=== PATIENT | male | born 1965 ===

== ENCOUNTER 2024-11-30 07:06 | Observation (INO) | payer BC ==
[2024-11-30] MEDS: Ativan 2 MG/1 ML VIAL IV ONE (07:21)
[2024-11-30 07:24] LABS: BASOPHIL % 0.6 % (0.2-1.2); Basophil (Absolute #) 0.07 x10^3/uL (0.01-0.08); Eosinophil (Absolute #) 0.20 x10^3/uL (0.04-0.54); Hematocrit 44.7 % (40.1-51.0); Hemoglobin 15.2 g/dL (13.7-17.5); IMMATURE GRAN # 0.05 x10^3u/L (0.001-0.031); IMMATURE GRAN % 0.4 % (0.001-0.429); Lymphocyte (Absolute #) 3.73 x10^3/uL (1.32-3.57); Mean Corpuscular Hemoglobin 31.9 pg (25.7-32.2); Mean Corpuscular Hgb Concent. 34.0 g/dL (32.3-36.5); Monocyte (Absolute #) 1.20 x10^3/uL (0.30-0.82); NUCLEATED RBC # 0.00 x10^3u/L (0.00-0.012); NUCLEATED RBC % 0.0 % (0.00-0.2); Platelet Count 275 x10^3/uL (163-337); Red Blood Count 4.77 x10^6/uL (4.63-6.08); White Blood Count 12.3 x10^3/uL (4.23-9.07)
--- NOTE | 2024-11-30 07:32 | ERPHSYRPT ---
- History of Present Illness Time Seen by Provider: 11/30/24 07:13 Source: patient, family Exam Limitations: clinical condition Patient Subjective Stated Complaint: seizure Triage Nursing Assessment: Pt brought to the ER by his son, hypertensive, pt was shaking but talking when he arrived and ativan was given and he is now sleeping and questions weren't able to be asked, unsure of medical history, pulses normal, skin n/w/d, no difficulty breathing, doesn't appear to be in any pain Physician History: Patient is here with seizure-like activity. Patient apparently was shaking all over after drinking a 5-hour energy. This is per the patient's adult son who is at bedside. Patient states that he has a history of seizures. However, he is not prescribed any medication. They are driving from [place] today. Denies any falls or other trauma. Hx Influenza Vaccination/Date Given: No Travel Risk - International Travel Have you traveled outside of the country in past 3 weeks: No - Emerging Infectious Disease Are you exhibiting symptoms associated with any current EIDs: No - Past Medical History Pertinent Past Medical History: Yes Neurological History: Seizures - Past Surgical History Past Surgical History: No - Social History Smoking Status: Current every day smoker Exposure to second hand smoke: Yes Drug Use: marijuana - Social Determinants of Health Will the patient participate in the screening: Yes Do you worry about a steady place to live?: No Do you have any problems with any of the following?: No known problems In the past 12 months,have you had to go without utilities?: No Transportation Issues: No Has anyone in your support network made you feel unsafe?: No Have you or anyone in your house had to go w/o enough food: No - Nursing Vital Signs Nursing Vital Signs: Initial Vital Signs Blood Pressure 174/87 11/30/24 07:05 Pain Scale Pain Intensity 0 - Physical Exam SpO2: 100 Comments: 11/30/24 07:25 Review of Systems Constitutional: Negative for fever. HENT: Negative for congestion. Respiratory: Negative for shortness of breath. Cardiovascular: Negative for chest pain. Gastrointestinal: Negative for abdominal pain. Genitourinary: Negative for dysuria. Musculoskeletal: Negative for back pain. Skin: Negative for rash. Neurological: Negative for headaches. Psychiatric/Behavioral: Negative for behavioral problems. All other systems reviewed and are negative. Physical Exam Vitals signs and nursing note reviewed. Constitutional: Appearance: Patient is well-developed. HENT: Head: Normocephalic and atraumatic. Eyes: Conjunctiva/sclera: Conjunctivae normal. Neck: Musculoskeletal: Normal range of motion. Trachea: No tracheal deviation. Cardiovascular: Rate and Rhythm: Normal rate. Heart sounds normal. Pulmonary: Effort: Pulmonary effort is normal. No respiratory distress. Abdominal: Palpations: Abdomen is soft. Musculoskeletal: General: No deformity. Skin: General: Skin is warm and dry. Neurological/ Psychiatric: Mental Status: Mental status, behavior, interaction with environment is appropriate for patient's age and condition. Patient is moving all 4 extremities, answering questions correctly. He is still tremulous in his arms and hands. - Course Nursing assessment & vital signs reviewed: Yes EKG Interpreted by Me: Sinus Rhythm Ordered Tests: Active Orders 24 hr Category Date Time Status Clean Catch Urine Specimen STAT Care 11/30/24 07:13 Active EKG-ER Only STAT Care 11/30/24 07:13 Active EKG-ER Only STAT Care 11/30/24 09:51 Active IV Insertion STAT Care 11/30/24 07:13 Active POCT Glucose Check STAT Care 11/30/24 07:13 Active CHEST 1 VIEW (PORTABLE) Stat Exams 11/30/24 07:14 Completed HEAD WITHOUT CONTRAST [CT] Stat Exams 11/30/24 07:14 Completed ACETAMINOPHEN Stat Lab 11/30/24 07:22 Completed CBC W DIFF Stat Lab 11/30/24 07:22 Completed CMP Stat Lab 11/30/24 07:22 Completed ETHYL ALCOHOL Stat Lab 11/30/24 07:22 Completed Lactic Acid Stat Lab 11/30/24 10:00 Completed POCT GLUCOSE Stat Lab 11/30/24 07:12 Completed PROTIME WITH INR Stat Lab 11/30/24 07:22 Completed SALICYLATE Stat Lab 11/30/24 07:22 Completed TROPONIN Q4H Lab 11/30/24 07:22 Completed TROPONIN Q4H Lab 11/30/24 10:02 Completed TROPONIN Q4H Lab 11/30/24 15:15 Ordered TROPONIN Q4H Lab 11/30/24 19:15 Ordered TROPONIN Q4H Lab 11/30/24 23:15 Ordered UA W/RFX UR CULTURE Stat Lab 11/30/24 08:40 Completed Urine Triage Profile Stat Lab 11/30/24 08:40 Completed Medication Summary Discontinued Medications Generic Name Dose Route Start Last Admin Trade Name Spencer PRN Reason Stop Dose Admin Sodium Chloride 1,000 mls @ 999 mls/hr 11/30/24 07:13 11/30/24 08:36 Sodium Chloride 0.9% 1000 Ml IV 11/30/24 08:13 Infused .Q1H1M STA Infusion Sodium Chloride Confirm 11/30/24 07:22 Sodium Chloride 0.9% 1000 Ml Administered 11/30/24 07:23 Dose 1,000 mls @ ud .ROUTE .STK-MED ONE Lorazepam 2 mg 11/30/24 07:20 11/30/24 07:21 Lorazepam 2 Mg/1 Ml 2 Mg Vial IV 11/30/24 07:21 2 mg STAT ONE Administration Lab/Rad Data: Laboratory Result Diagrams 11/30/24 07:22 11/30/24 07:22 Laboratory Results 11/30/24 11/30/24 11/30/24 Range/Units 10:02 10:00 08:40 WBC (4.23-9.07) x10^3/uL RBC (4.63-6.08) x10^6/uL Hgb (13.7-17.5) g/dL Hct (40.1-51.0) % MCV (79.0-92.2) fL MCH (25.7-32.2) pg MCHC (32.3-36.5) g/dL RDW (11.6-14.4) % Plt Count (163-337) x10^3/uL MPV (9.4-12.4) fL Gran % (34.0-67.9) % Immature Gran % (Auto) (0.001-0.429) % Nucleat RBC Rel Count (0.00-0.2) % Eos # (Auto) (0.04-0.54) x10^3/uL Immature Gran # (Auto) (0.001-0.031) x10^3u/L Absolute Lymphs (auto) (1.32-3.57) x10^3/uL Absolute Monos (auto) (0.30-0.82) x10^3/uL Absolute Nucleated RBC (0.00-0.012) x10^3u/L Lymphocytes % (21.8-53.1) % Monocytes % (5.3-12.2) % Eosinophils % (0.8-7.0) % Basophils % (0.2-1.2) % Absolute Granulocytes (1.78-5.38) x10^3/uL Basophils # (0.01-0.08) x10^3/uL PT (9.4-12.5) SECONDS INR (0.8-3.0) Sodium (135-145) mmol/L Potassium (3.5-5.1) mmol/L Chloride (98-107) mmol/L Carbon Dioxide (22-30) mmol/L Anion Gap (5-15) MEQ/L BUN (9-20) mg/dL Creatinine (0.66-1.25) mg/dL Estimated GFR ML/MIN Glucose (74-106) mg/dL POC Glucometer (74 to 106) mg/dL Lactic Acid 1.4 (0.4-2.0) Calcium (8.4-10.2) mg/dL Total Bilirubin (0.2-1.3) mg/dL AST (17-59) U/L ALT (0-50) U/L Alkaline Phosphatase (38-126) U/L Troponin I 0.016 (0.000-0.033) ng/mL Serum Total Protein (6.3-8.2) g/dL Albumin (3.5-5.0) g/dL Urine Color (Yellow) Urine Appearance (Clear) Urine pH (4.6-8.0) Ur Specific [place] (1.005-1.030) Urine Protein (Negative) Urine Glucose (UA) (Negative) mg/dL Urine Ketones (Negative) Urine Blood (Negative) Urine Nitrite (Negative) Urine Bilirubin (Negative) Urine Urobilinogen (0.2) mg/dL Ur Leukocyte Esterase (Negative) U Hyaline Cast (Auto) (0-2) /LPF Urine Microscopic RBC (0-5) /HPF Urine Microscopic WBC (0-5) /HPF Ur Epithelial Cells (None Seen) /HPF Urine Bacteria (None Seen) /HPF Urine Culture Reflexed (NO) Salicylates (2-20) mg/dL Urine Opiates Level NEGATIVE (NEGATIVE) Ur Methadone NEGATIVE (NEGATIVE) Acetaminophen (10-30) ug/ml Urine Barbiturates NEGATIVE (NEGATIVE) Ur Phencyclidine (PCP) NEGATIVE (NEGATIVE) Urine Amphetamine NEGATIVE (NEGATIVE) U Benzodiazepine Level NEGATIVE (NEGATIVE) Urine Cocaine NEGATIVE (NEGATIVE) Urine Marijuana (THC) POSITIVE A (NEGATIVE) Ethyl Alcohol (0-10) mg/dL 11/30/24 11/30/24 11/30/24 Range/Units 08:40 07:22 07:22 WBC (4.23-9.07) x10^3/uL RBC (4.63-6.08) x10^6/uL Hgb (13.7-17.5) g/dL Hct (40.1-51.0) % MCV (79.0-92.2) fL MCH (25.7-32.2) pg MCHC (32.3-36.5) g/dL RDW (11.6-14.4) % Plt Count (163-337) x10^3/uL MPV (9.4-12.4) fL Gran % (34.0-67.9) % Immature Gran % (Auto) (0.001-0.429) % Nucleat RBC Rel Count (0.00-0.2) % Eos # (Auto) (0.04-0.54) x10^3/uL Immature Gran # (Auto) (0.001-0.031) x10^3u/L Absolute Lymphs (auto) (1.32-3.57) x10^3/uL Absolute Monos (auto) (0.30-0.82) x10^3/uL Absolute Nucleated RBC (0.00-0.012) x10^3u/L Lymphocytes % (21.8-53.1) % Monocytes % (5.3-12.2) % Eosinophils % (0.8-7.0) % Basophils % (0.2-1.2) % Absolute Granulocytes (1.78-5.38) x10^3/uL Basophils # (0.01-0.08) x10^3/uL PT 9.7 (9.4-12.5) SECONDS INR 0.88 (0.8-3.0) Sodium (135-145) mmol/L Potassium (3.5-5.1) mmol/L Chloride (98-107) mmol/L Carbon Dioxide (22-30) mmol/L Anion Gap (5-15) MEQ/L BUN (9-20) mg/dL Creatinine (0.66-1.25) mg/dL Estimated GFR ML/MIN Glucose (74-106) mg/dL POC Glucometer (74 to 106) mg/dL Lactic Acid (0.4-2.0) Calcium (8.4-10.2) mg/dL Total Bilirubin (0.2-1.3) mg/dL AST (17-59) U/L ALT (0-50) U/L Alkaline Phosphatase (38-126) U/L Troponin I < 0.012 (0.000-0.033) ng/mL Serum Total Protein (6.3-8.2) g/dL Albumin (3.5-5.0) g/dL Urine Color Yellow (Yellow) Urine Appearance Clear (Clear) Urine pH 6.5 (4.6-8.0) Ur Specific [place] 1.015 (1.005-1.030) Urine Protein Negative (Negative) Urine Glucose (UA) Negative (Negative) mg/dL Urine Ketones Negative (Negative) Urine Blood Negative (Negative) Urine Nitrite Negative (Negative) Urine Bilirubin Negative (Negative) Urine Urobilinogen 0.2 (0.2) mg/dL Ur Leukocyte Esterase Negative (Negative) U Hyaline Cast (Auto) NONE SEEN (0-2) /LPF Urine Microscopic RBC 0-2 (0-5) /HPF Urine Microscopic WBC 0-2 (0-5) /HPF Ur Epithelial Cells None Seen (None Seen) /HPF Urine Bacteria None Seen (None Seen) /HPF Urine Culture Reflexed NO (NO) Salicylates (2-20) mg/dL Urine Opiates Level (NEGATIVE) Ur Methadone (NEGATIVE) Acetaminophen (10-30) ug/ml Urine Barbiturates (NEGATIVE) Ur Phencyclidine (PCP) (NEGATIVE) Urine Amphetamine (NEGATIVE) U Benzodiazepine Level (NEGATIVE) Urine Cocaine (NEGATIVE) Urine Marijuana (THC) (NEGATIVE) Ethyl Alcohol (0-10) mg/dL 11/30/24 11/30/24 11/30/24 Range/Units 07:22 07:22 07:12 WBC 12.3 H (4.23-9.07) x10^3/uL RBC 4.77 (4.63-6.08) x10^6/uL Hgb 15.2 (13.7-17.5) g/dL Hct 44.7 (40.1-51.0) % MCV 93.7 H (79.0-92.2) fL MCH 31.9 (25.7-32.2) pg MCHC 34.0 (32.3-36.5) g/dL RDW 13.1 (11.6-14.4) % Plt Count 275 (163-337) x10^3/uL MPV 10.9 (9.4-12.4) fL Gran % 57.4 (34.0-67.9) % Immature Gran % (Auto) 0.4 (0.001-0.429) % Nucleat RBC Rel Count 0.0 (0.00-0.2) % Eos # (Auto) 0.20 (0.04-0.54) x10^3/uL Immature Gran # (Auto) 0.05 H (0.001-0.031) x10^3u/L Absolute Lymphs (auto) 3.73 H (1.32-3.57) x10^3/uL Absolute Monos (auto) 1.20 H (0.30-0.82) x10^3/uL Absolute Nucleated RBC 0.00 (0.00-0.012) x10^3u/L Lymphocytes % 30.3 (21.8-53.1) % Monocytes % 9.7 (5.3-12.2) % Eosinophils % 1.6 (0.8-7.0) % Basophils % 0.6 (0.2-1.2) % Absolute Granulocytes 7.07 H (1.78-5.38) x10^3/uL Basophils # 0.07 (0.01-0.08) x10^3/uL PT (9.4-12.5) SECONDS INR (0.8-3.0) Sodium 141 (135-145) mmol/L Potassium 4.0 (3.5-5.1) mmol/L Chloride 104 (98-107) mmol/L Carbon Dioxide 26 (22-30) mmol/L Anion Gap 15.1 H (5-15) MEQ/L BUN 19 (9-20) mg/dL Creatinine 0.93 (0.66-1.25) mg/dL Estimated GFR 95.2 ML/MIN Glucose 120 H (74-106) mg/dL POC Glucometer 109 H (74 to 106) mg/dL Lactic Acid (0.4-2.0) Calcium 9.4 (8.4-10.2) mg/dL Total Bilirubin 0.20 (0.2-1.3) mg/dL AST 29 (17-59) U/L ALT 27 (0-50) U/L Alkaline Phosphatase 85 (38-126) U/L Troponin I (0.000-0.033) ng/mL Serum Total Protein 7.7 (6.3-8.2) g/dL Albumin 4.8 (3.5-5.0) g/dL Urine Color (Yellow) Urine Appearance (Clear) Urine pH (4.6-8.0) Ur Specific [place] (1.005-1.030) Urine Protein (Negative) Urine Glucose (UA) (Negative) mg/dL Urine Ketones (Negative) Urine Blood (Negative) Urine Nitrite (Negative) Urine Bilirubin (Negative) Urine Urobilinogen (0.2) mg/dL Ur Leukocyte Esterase (Negative) U Hyaline Cast (Auto) (0-2) /LPF Urine Microscopic RBC (0-5) /HPF Urine Microscopic WBC (0-5) /HPF Ur Epithelial Cells (None Seen) /HPF Urine Bacteria (None Seen) /HPF Urine Culture Reflexed (NO) Salicylates < 1.0 L (2-20) mg/dL Urine Opiates Level (NEGATIVE) Ur Methadone (NEGATIVE) Acetaminophen < 10 L (10-30) ug/ml Urine Barbiturates (NEGATIVE) Ur Phencyclidine (PCP) (NEGATIVE) Urine Amphetamine (NEGATIVE) U Benzodiazepine Level (NEGATIVE) Urine Cocaine (NEGATIVE) Urine Marijuana (THC) (NEGATIVE) Ethyl Alcohol < 10 (0-10) mg/dL - Progress Progress: improved Progress Note: 11/30/24 07:27 Differential diagnosis includes breakthrough seizure, shaking episode, caffeine use, other drug use, Tylenol overdose, aspirin overdose, stroke, head bleed, STEMI, NSTEMI Will obtain basic labs, EKG, troponins, head CT,Chest x-ray, close observation, lunchroom monitor, O2 monitor 11/30/24 10:46 Repeat EKG after 3-1/2 hours demonstrates continued sinus bradycardia, rate of 47, [place] 154, QRS 141, QTc 430, no significant ST changes compared to previous EKG. Patient has had no further episodes of here in the emergency department. He has been observed for almost [address] was read as negative, no obvious source of infection was found. Patient has 2 negative troponins, no EKG changes, no arrhythmia on the lunchroom monitor throughout monitoring. Although patient states he has a history of seizure, he is not on any medication. Perhaps this should be reevaluated by his PCP. I did give typical seizure precautions. This includes no driving, working over an open flame, any activity that could result in injury if he had a seizure. This could also include horseback riding, motorcycle riding. Patient may have also just been shaking after the 5-hour energy drink from a caffeine overload. I did not witness any seizure-like activity and his son may have been describing shaking the whole time. Either way, as above seizure precautions with strict return precautions. I did discuss all this with the patient's son at bedside when he came to pick him up. I described strict return precautions and close follow-up. Counseled pt/family regarding: lab results, diagnosis, need for follow-up, rad results - Departure Departure Disposition: Home Clinical Impression: Episode of shaking Condition: Stable Critical Care Time: No Instructions: Seizures, Adult (DC)
[2024-11-30 07:37] LABS: INR 0.88 (0.8-3.0); PROTIME 9.7 SECONDS (9.4-12.5)
[2024-11-30 07:38] LABS: Calcium 9.4 mg/dL (8.4-10.2); Carbon Dioxide 26 mmol/L (22-30); Creatinine 1 0.93 mg/dL (0.66-1.25); EST GLOMERULAR FILTRATION RATE 95.2 ML/MIN; ETHYL ALCOHOL < 10 mg/dL (0-10); Glucose 120 mg/dL (74-106); Potassium 4.0 mmol/L (3.5-5.1); SGOT/AST 29 U/L (17-59); SGPT/ALT 27 U/L (0-50); Total Protein 7.7 g/dL (6.3-8.2)
--- NOTE | 2024-11-30 08:45 | XRAY ---
Indication: Aspiration. Comparison: None Portable chest inflated and clear. Heart not enlarged. Bony thorax intact with osteopenia and minimal degenerative changes. Impression: Nonacute chest.
--- NOTE | 2024-11-30 08:47 | XRAY ---
Indication: Seizure. Multiple contiguous axial images obtained through the head without contrast. Comparison: None Age-appropriate global atrophy , minimal periventricular degenerative microischemia bilaterally, and remote lacunar infarct right basal ganglia. Left occipital lobe demonstrates small focus remote infarct. No acute intracranial hemorrhage, hydrocephalus, or mass effect. 4th ventricle is midline. Bony calvarium intact. Visualized paranasal sinuses and mastoid air cells are clear. Impression: Nonacute senile brain with remote lacunar infarct right basal ganglia and small remote infarct left occipital lobe.
[2024-11-30 08:49] LABS: Glucose, Urine Negative (Negative); Protein,Urine Dip Negative (Negative); RBC 0-2 /HPF (0-5); WBC 0-2 /HPF (0-5)
[2024-11-30 09:09] LABS: Amphetamine,Urine NEGATIVE (NEGATIVE); Barbiturate,Urine NEGATIVE (NEGATIVE); Benzodiazepine,Urine NEGATIVE (NEGATIVE); Cocaine,Urine NEGATIVE (NEGATIVE); Methadone,Urine NEGATIVE (NEGATIVE); Opiate,Urine NEGATIVE (NEGATIVE); PCP,Urine NEGATIVE (NEGATIVE); THC,Urine POSITIVE (NEGATIVE)
[2024-11-30] MEDS ORDERED: BABY ASPIRIN 81 MG CHEW ONE (11:06)
[2024-11-30] MEDS: BABY ASPIRIN 81 MG CHEW PO ONE (11:08)
--- NOTE | 2024-11-30 11:59 | PCM.CONS ---
History of Present Illness - Neuro Consultation Date of Consultation Date: 11/30/24 ED Arrival Date & Time: 11/30/24 07:06 Providers: Attending Provider: ED Provider: RONAK BARBOSA Consulting Provider: MICHELE JAMES MD cc:: The requesting physician will be sent a copy of the consult. - History of Present Illness HPI: The patient is a 58M with minimal prior PMH, does not take any medications. He was with son all morning, and son noticed he was having trouble walking, stumbling a bit, and saying something felt wrong. At first no obvious deficits were noted, however at some point son noticed the patient was holding his right arm limply at his side, and was using his left arm to move the right arm around. Son brought him to the ER around 7am. He had witnessed shaking which was concerning for seizure activity was given lorazepam. Shaking described by patient's son and bedside nurse as generalized tremors. The shaking stopped and post lorazepam he was drowsy however on re-evaluation as the lorazepam wore off, he was noted to exhibited right sided weakness and slurred speech. Stroke alert called. REVIEW OF SYSTEMS: - Constitutional: negative except as stated in HPI above - ENT: negative except as stated in HPI above - Cardiovascular: negative except as stated in HPI above - Respiratory: negative except as stated in HPI above - Gastrointestinal: negative except as stated in HPI above - Musculoskeletal: negative except as stated in HPI above - Neurological: negative except as stated in HPI above - Psychiatric: negative except as stated in HPI above - Hematologic: negative except as stated in HPI above - Endocrine: negative except as stated in HPI above PAST MEDICAL/SURGICAL HISTORY: as stated in HPI FAMILY HISTORY: no relevant family history disclosed SOCIAL HISTORY: current smoker Review of Systems - Review of Systems Review of Systems (Narrative): Pertinent positive and negative findings as per HPI. All other systems negative. - Past Medical History Past Medical History: Yes Neurological History: Seizures - Past Surgical History Past Surgical History: No - Social History Smoking Status: Current every day smoker Exposure to second hand smoke: Yes Alcohol: Occasionally Drug Use: marijuana - Social Determinants of Health Will the patient participate in the screening: Yes Do you worry about a steady place to live?: No Do you have any problems with any of the following?: No known problems In the past 12 months,have you had to go without utilities?: No Have you or anyone in your house had to go without enough: No Transportation Issues: No Has anyone in your support network made you feel unsafe?: No Physical Exam - Vital Signs Vital Signs: Vital Signs - 24 hr 11/30/24 11/30/24 11/30/24 07:05 07:08 07:44 Pulse Rate 68 52 L Respiratory 23 16 Rate Blood Pressure 174/87 130/81 Blood Pressure 174/87 [Left Arm] O2 Sat by Pulse 100 100 Oximetry 11/30/24 11/30/24 11/30/24 08:00 08:31 09:01 Pulse Rate 59 L 55 L 57 L Respiratory 16 14 15 Rate Blood Pressure 122/77 159/94 148/85 Blood Pressure [Left Arm] O2 Sat by Pulse Oximetry 11/30/24 11/30/24 11/30/24 09:30 10:00 10:31 Pulse Rate 46 L 47 L 46 L Respiratory 16 16 16 Rate Blood Pressure 134/78 159/85 138/76 Blood Pressure [Left Arm] O2 Sat by Pulse Oximetry 11/30/24 11/30/24 11/30/24 10:49 11:18 11:39 Pulse Rate 43 L Respiratory 14 Rate Blood Pressure 167/95 147/74 Blood Pressure [Left Arm] O2 Sat by Pulse 100 100 Oximetry - Physical Exam Tele-Neuro Physical Exam (Narrative): Constitutional: well-developed, no acute distress Cardiovascular: appears well-perfused, no significant edema Skin: no evident rashes or lesions Respiratory: breathing comfortably on room air Psychiatric: drowsy but interactive, conversational Eyes: normal ocular alignment, full range of motion Musculoskeletal: RUE plegic, RLE able to briefly lift antigravity but unable to sustain, no drift in LUE & LLE Neurologic: no aphasia, slight R FD, mild-moderate dysarthria, reports right- sided sensory loss NIHSS Mental status (0-3): 1 Month/age (0-2): 0 Commands (0-2): 0 Best Gaze (0-2): 0 Visual Antoine (0-3):0 Facial weakness (0-3): 1 LUE (0-4): 0 RUE (0-4): 4 LLE (0-4): 0 RLE (0-4): 2 Ataxia (0-2): 0 Sensation (0-2): 2 Aphasia (0-3): 0 Dysarthria (0-2): 1 Extinction (0-2): 0 NIHSS Total: 11 Results - Labs Lab/Micro Results: Lab Results-Last 24 Hours 11/30/24 11/30/24 11/30/24 Range/Units 07:12 07:22 07:22 WBC 12.3 H (4.23-9.07) x10^3/uL RBC 4.77 (4.63-6.08) x10^6/uL Hgb 15.2 (13.7-17.5) g/dL Hct 44.7 (40.1-51.0) % MCV 93.7 H (79.0-92.2) fL MCH 31.9 (25.7-32.2) pg MCHC 34.0 (32.3-36.5) g/dL RDW 13.1 (11.6-14.4) % Plt Count 275 (163-337) x10^3/uL MPV 10.9 (9.4-12.4) fL Gran % 57.4 (34.0-67.9) % Immature Gran % (Auto) 0.4 (0.001-0.429) % Nucleat RBC Rel Count 0.0 (0.00-0.2) % Eos # (Auto) 0.20 (0.04-0.54) x10^3/uL Immature Gran # (Auto) 0.05 H (0.001-0.031) x10^3u/L Absolute Lymphs (auto) 3.73 H (1.32-3.57) x10^3/uL Absolute Monos (auto) 1.20 H (0.30-0.82) x10^3/uL Absolute Nucleated RBC 0.00 (0.00-0.012) x10^3u/L Lymphocytes % 30.3 (21.8-53.1) % Monocytes % 9.7 (5.3-12.2) % Eosinophils % 1.6 (0.8-7.0) % Basophils % 0.6 (0.2-1.2) % Absolute Granulocytes 7.07 H (1.78-5.38) x10^3/uL Basophils # 0.07 (0.01-0.08) x10^3/uL PT (9.4-12.5) SECONDS INR (0.8-3.0) Sodium 141 (135-145) mmol/L Potassium 4.0 (3.5-5.1) mmol/L Chloride 104 (98-107) mmol/L Carbon Dioxide 26 (22-30) mmol/L Anion Gap 15.1 H (5-15) MEQ/L BUN 19 (9-20) mg/dL Creatinine 0.93 (0.66-1.25) mg/dL Estimated GFR 95.2 ML/MIN Glucose 120 H (74-106) mg/dL POC Glucometer 109 H (74 to 106) mg/dL Lactic Acid (0.4-2.0) Calcium 9.4 (8.4-10.2) mg/dL Total Bilirubin 0.20 (0.2-1.3) mg/dL AST 29 (17-59) U/L ALT 27 (0-50) U/L Alkaline Phosphatase 85 (38-126) U/L Troponin I (0.000-0.033) ng/mL Serum Total Protein 7.7 (6.3-8.2) g/dL Albumin 4.8 (3.5-5.0) g/dL Urine Color (Yellow) Urine Appearance (Clear) Urine pH (4.6-8.0) Ur Specific Mellott (1.005-1.030) Urine Protein (Negative) Urine Glucose (UA) (Negative) mg/dL Urine Ketones (Negative) Urine Blood (Negative) Urine Nitrite (Negative) Urine Bilirubin (Negative) Urine Urobilinogen (0.2) mg/dL Ur Leukocyte Esterase (Negative) U Hyaline Cast (Auto) (0-2) /LPF Urine Microscopic RBC (0-5) /HPF Urine Microscopic WBC (0-5) /HPF Ur Epithelial Cells (None Seen) /HPF Urine Bacteria (None Seen) /HPF Urine Culture Reflexed (NO) Salicylates < 1.0 L (2-20) mg/dL Urine Opiates Level (NEGATIVE) Ur Methadone (NEGATIVE) Acetaminophen < 10 L (10-30) ug/ml Urine Barbiturates (NEGATIVE) Ur Phencyclidine (PCP) (NEGATIVE) Urine Amphetamine (NEGATIVE) U Benzodiazepine Level (NEGATIVE) Urine Cocaine (NEGATIVE) Urine Marijuana (THC) (NEGATIVE) Ethyl Alcohol < 10 (0-10) mg/dL 11/30/24 11/30/24 11/30/24 Range/Units 07:22 07:22 08:40 WBC (4.23-9.07) x10^3/uL RBC (4.63-6.08) x10^6/uL Hgb (13.7-17.5) g/dL Hct (40.1-51.0) % MCV (79.0-92.2) fL MCH (25.7-32.2) pg MCHC (32.3-36.5) g/dL RDW (11.6-14.4) % Plt Count (163-337) x10^3/uL MPV (9.4-12.4) fL Gran % (34.0-67.9) % Immature Gran % (Auto) (0.001-0.429) % Nucleat RBC Rel Count (0.00-0.2) % Eos # (Auto) (0.04-0.54) x10^3/uL Immature Gran # (Auto) (0.001-0.031) x10^3u/L Absolute Lymphs (auto) (1.32-3.57) x10^3/uL Absolute Monos (auto) (0.30-0.82) x10^3/uL Absolute Nucleated RBC (0.00-0.012) x10^3u/L Lymphocytes % (21.8-53.1) % Monocytes % (5.3-12.2) % Eosinophils % (0.8-7.0) % Basophils % (0.2-1.2) % Absolute Granulocytes (1.78-5.38) x10^3/uL Basophils # (0.01-0.08) x10^3/uL PT 9.7 (9.4-12.5) SECONDS INR 0.88 (0.8-3.0) Sodium (135-145) mmol/L Potassium (3.5-5.1) mmol/L Chloride (98-107) mmol/L Carbon Dioxide (22-30) mmol/L Anion Gap (5-15) MEQ/L BUN (9-20) mg/dL Creatinine (0.66-1.25) mg/dL Estimated GFR ML/MIN Glucose (74-106) mg/dL POC Glucometer (74 to 106) mg/dL Lactic Acid (0.4-2.0) Calcium (8.4-10.2) mg/dL Total Bilirubin (0.2-1.3) mg/dL AST (17-59) U/L ALT (0-50) U/L Alkaline Phosphatase (38-126) U/L Troponin I < 0.012 (0.000-0.033) ng/mL Serum Total Protein (6.3-8.2) g/dL Albumin (3.5-5.0) g/dL Urine Color Yellow (Yellow) Urine Appearance Clear (Clear) Urine pH 6.5 (4.6-8.0) Ur Specific Mellott 1.015 (1.005-1.030) Urine Protein Negative (Negative) Urine Glucose (UA) Negative (Negative) mg/dL Urine Ketones Negative (Negative) Urine Blood Negative (Negative) Urine Nitrite Negative (Negative) Urine Bilirubin Negative (Negative) Urine Urobilinogen 0.2 (0.2) mg/dL Ur Leukocyte Esterase Negative (Negative) U Hyaline Cast (Auto) NONE SEEN (0-2) /LPF Urine Microscopic RBC 0-2 (0-5) /HPF Urine Microscopic WBC 0-2 (0-5) /HPF Ur Epithelial Cells None Seen (None Seen) /HPF Urine Bacteria None Seen (None Seen) /HPF Urine Culture Reflexed NO (NO) Salicylates (2-20) mg/dL Urine Opiates Level (NEGATIVE) Ur Methadone (NEGATIVE) Acetaminophen (10-30) ug/ml Urine Barbiturates (NEGATIVE) Ur Phencyclidine (PCP) (NEGATIVE) Urine Amphetamine (NEGATIVE) U Benzodiazepine Level (NEGATIVE) Urine Cocaine (NEGATIVE) Urine Marijuana (THC) (NEGATIVE) Ethyl Alcohol (0-10) mg/dL 11/30/24 11/30/24 11/30/24 Range/Units 08:40 10:00 10:02 WBC (4.23-9.07) x10^3/uL RBC (4.63-6.08) x10^6/uL Hgb (13.7-17.5) g/dL Hct (40.1-51.0) % MCV (79.0-92.2) fL MCH (25.7-32.2) pg MCHC (32.3-36.5) g/dL RDW (11.6-14.4) % Plt Count (163-337) x10^3/uL MPV (9.4-12.4) fL Gran % (34.0-67.9) % Immature Gran % (Auto) (0.001-0.429) % Nucleat RBC Rel Count (0.00-0.2) % Eos # (Auto) (0.04-0.54) x10^3/uL Immature Gran # (Auto) (0.001-0.031) x10^3u/L Absolute Lymphs (auto) (1.32-3.57) x10^3/uL Absolute Monos (auto) (0.30-0.82) x10^3/uL Absolute Nucleated RBC (0.00-0.012) x10^3u/L Lymphocytes % (21.8-53.1) % Monocytes % (5.3-12.2) % Eosinophils % (0.8-7.0) % Basophils % (0.2-1.2) % Absolute Granulocytes (1.78-5.38) x10^3/uL Basophils # (0.01-0.08) x10^3/uL PT (9.4-12.5) SECONDS INR (0.8-3.0) Sodium (135-145) mmol/L Potassium (3.5-5.1) mmol/L Chloride (98-107) mmol/L Carbon Dioxide (22-30) mmol/L Anion Gap (5-15) MEQ/L BUN (9-20) mg/dL Creatinine (0.66-1.25) mg/dL Estimated GFR ML/MIN Glucose (74-106) mg/dL POC Glucometer (74 to 106) mg/dL Lactic Acid 1.4 (0.4-2.0) Calcium (8.4-10.2) mg/dL Total Bilirubin (0.2-1.3) mg/dL AST (17-59) U/L ALT (0-50) U/L Alkaline Phosphatase (38-126) U/L Troponin I 0.016 (0.000-0.033) ng/mL Serum Total Protein (6.3-8.2) g/dL Albumin (3.5-5.0) g/dL Urine Color (Yellow) Urine Appearance (Clear) Urine pH (4.6-8.0) Ur Specific Mellott (1.005-1.030) Urine Protein (Negative) Urine Glucose (UA) (Negative) mg/dL Urine Ketones (Negative) Urine Blood (Negative) Urine Nitrite (Negative) Urine Bilirubin (Negative) Urine Urobilinogen (0.2) mg/dL Ur Leukocyte Esterase (Negative) U Hyaline Cast (Auto) (0-2) /LPF Urine Microscopic RBC (0-5) /HPF Urine Microscopic WBC (0-5) /HPF Ur Epithelial Cells (None Seen) /HPF Urine Bacteria (None Seen) /HPF Urine Culture Reflexed (NO) Salicylates (2-20) mg/dL Urine Opiates Level NEGATIVE (NEGATIVE) Ur Methadone NEGATIVE (NEGATIVE) Acetaminophen (10-30) ug/ml Urine Barbiturates NEGATIVE (NEGATIVE) Ur Phencyclidine (PCP) NEGATIVE (NEGATIVE) Urine Amphetamine NEGATIVE (NEGATIVE) U Benzodiazepine Level NEGATIVE (NEGATIVE) Urine Cocaine NEGATIVE (NEGATIVE) Urine Marijuana (THC) POSITIVE A (NEGATIVE) Ethyl Alcohol (0-10) mg/dL - Radiology Orders Radiology Orders: Radiology Procedures Category Date Time Status CHEST 1 VIEW (PORTABLE) Stat Exams 11/30/24 07:[address] ANGIOGRAPHY NECK [CT] Stat Exams 11/30/24 11:07 Taken CTA HEAD W AND/OR WO CONTRAST [CT] Stat Exams 11/30/24 11:06 Taken HEAD WITHOUT CONTRAST [CT] Stat Exams 11/30/24 07:14 Completed Impressions & Recommendations - Impression Acute Ischemic Stroke: On my evaluation, demonstrating right sided weakness and facial droop with some dysarthria, consistent with acute ischemic stroke. He is also drowsy which is likely related to the lorazepam he received earlier. Symptoms seemed to have started prior to 7am per son. CTH and CTA personally reviewed, no acute pathology, no LVO. Not a candidate for IV thrombolytics due to symptom onset >4.5h ago. Not a candidate for thrombectomy due to no LVO on CTA. Besides stroke, another possibility could be seizure with Miller's paralysis. Recommendations: - serial neurological examinations - MRI brain without contrast - telemetry - TTE with bubble study - check LDL, goal <70, high intensity statin first line therapy - check A1c, goal <7.0 - permissive hypertension for today (BP <220/120) - start aspirin 81mg daily - PT/OT/DIETETIC TECH Discussed with Dr. Barbosa. - ED Arrival Time ED Arrival Date & Time: ED Arrival Date and Time 11/30/24 07:06 Last known well time: - NIHSS Is patient an IV TPA candidate (if no specify reason): No Is patient a thrombectomy candidate:: No Assessment & Plan - Encounter Encounter: "The entirety of this encounter was performed via Telemedicine using audio and visual "
--- NOTE | 2024-11-30 13:12 | XRAY ---
Indication: Seizure. Stroke. Conventional contrast-enhanced CTA neck performed using 80 cc Isovue 370 contrast. 2D sagittal and coronal reformatted images obtained. Additional 3D reformatted images obtained using separate workstation. Comparison: None Visualized aortic arch is normal in CTA appearance with normal widely patent branching right brachiocephalic, left common carotid, and left subclavian arteries. Left and right common carotid, carotid bulb, internal carotid, and external carotid arteries are normal in CTA appearance. Vertebral arteries are also normal in CTA appearance with the left slightly larger in caliber. Visualized soft tissues demonstrates mild biapical pleural thickening with minimal subpleural cystic changes. No pathologic cervical/supraclavicular lymphadenopathy. Supra and infraglottic airway widely patent. Normal epiglottis. Osseous structures intact with mild C3-T1 degenerative spondylosis. Patient is nearly edentulous. Impression: 1. Chronic findings including biapical pleural thickening with subpleural cystic changes and C3-T1 degenerative spondylosis. 2. Remaining CTA neck with contrast exam is normal.
--- NOTE | 2024-11-30 13:20 | XRAY ---
Indication: Seizure. Stroke. Conventional contrast-enhanced CTA head performed using 80 cc Isovue 370 contrast. 2D sagittal and coronal reformatted images obtained. Additional 3D reformatted images obtained using separate workstation. Comparison: None Distal internal carotid arteries are bilaterally symmetric without critical stenosis, obstruction, or AV malformation. Normal carotid terminus with normal branching A1 and M1 segments bilaterally. More distal anterior cerebral and middle cerebral arteries are normal in CTA appearance. Posterior circulation demonstrates normal CTA appearance to basilar, left/right posterior cerebral, left/right superior cerebellar, and left/right anterior inferior cerebellar arteries. Venous sinuses/drainage unremarkable. Brain parenchyma is negative for abnormal intra or extra-axial enhancement. Impression: Normal CTA head with contrast exam.
--- NOTE | 2024-11-30 14:22 | PCM.HP ---
<WALTER CRABTREE - Last Filed: 11/30/24 14:55> History of Present Illness - Chief Complaint Chief Complaint: CVA Date: 11/30/24 History of Present Illness: is a 58 year old male with a pmhx of seizures (not on any home medications) presented to ED 11/30/24 with his son after developing acute neurologic symptoms. The patient reports that earlier in the morning, around 7:00 AM, after drinking a [employer] beverage, he began noticing that he was having trouble walking and was stumbling. He states that his speech became slurred and he wasnt able to talk correctly. He further reports that his right arm became numb, that he was unable to body builder or move it, and that his right leg was also difficult to move. While in the emergency department he developed shaking episodes described as generalized tremors, for which he was given lorazepam. The shaking resolved, but he was drowsy afterward. As the sedative effect wore off, he continued to demonstrate right-sided weakness and dysarthria, prompting a stroke alert. On my exam patient is drowsy but arousable and able to follow simple commands. Speech is slurred with dysarthria. Cranial nerve exam notable for right lower facial droop. Motor exam demonstrates profound weakness of the right upper and lower extremities, with no voluntary movement and no body builder strength in the right hand. Left upper and lower extremities move spontaneously with normal strength. Sensation diminished in the right upper and lower extremities to light touch. On arrival, vital signs were stable. Laboratory studies showed leukocytosis with WBC 12.3 and an anion gap metabolic acidosis with gap 15.1. Serial troponins were within normal limits, urinalysis was unremarkable, and urine drug screen was positive for THC. Chest radiograph showed no acute findings. CT head demonstrated chronic changes including a remote lacunar infarct in the right basal ganglia and a small remote infarct in the left occipital lobe but no acute hemorrhage. CTA of the head was normal without large vessel occlusion. CTA of the neck revealed chronic findings of biapical pleural thickening with subpleural cystic changes and degenerative spondylosis from C3 to T1, with the remainder of the study normal. Neurology evaluation revealed right-sided weakness, facial droop, and dysarthria consistent with acute ischemic stroke, with his drowsiness attributed to benzodiazepine administration. He was not a candidate for IV thrombolysis given symptom onset greater than 4.5 hours prior, and not a candidate for thrombectomy due to absence of LVO on CTA. Recommendations included serial neurologic examinations, MRI brain without contrast, continuous telemetry, transthoracic echocardiogram with bubble study, initiation of aspirin 81 mg daily and high-intensity statin therapy, evaluation of LDL and hemoglobin A1c, permissive hypertension for the first 24 hours with BP goal <220/120, and early involvement of PT, OT, and speech therapy. - Review of Systems Constitutional: Weakness Eyes: No Symptoms Ears, Nose, & Throat: No Symptoms Respiratory: No Symptoms Cardiac: No Symptoms Abdominal/Gastrointestinal: No Symptoms Genitourinary Symptoms: No Symptoms Musculoskeletal: No Symptoms Skin: No Symptoms Neurological: Focal Weakness, Gait Changes, Seizure, Sensory Changes, Speech Changes, Tremors Psychological: No Symptoms Endocrine: No Symptoms Hematologic/Lymphatic: No Symptoms Immunological/Allergic: No Symptoms Medications & Allergies Home Medications: Home Medication List Aspirin EC 81 mg [Ecotrin 81 mg] 81 mg PO QAM tablet 11/30/24 [Rx] Atorvastatin Calcium [Lipitor 40Mg] 80 mg PO DAILY tablet 11/30/24 [Rx] Nicotine 14 mg [Nicoderm Cq 14 mg] 14 mg TOP Q24H10 patch 11/30/24 [Rx] Ondansetron HCl 4 mg/2 ml [Zofran 4 MG/2 ML VIAL] 4 mg IV Q6H PRN PRN 11/30/24 [Rx] Allergies/Adverse Reactions: Allergies Allergy/AdvReac Type Severity Reaction Status Date / Time No Known Drug Allergies Allergy Verified 11/30/24 14:28 - Past Medical History Past Medical History: Yes Neurological History: Seizures - Past Surgical History Past Surgical History: No - Social History Smoking Status: Current every day smoker Exposure to second hand smoke: Yes Alcohol: Occasionally Drug Use: marijuana - Social Determinants of Health Will the patient participate in the screening: Yes Do you worry about a steady place to live?: No Do you have any problems with any of the following?: No known problems In the past 12 months,have you had to go without utilities?: No Have you or anyone in your house had to go without enough: No Transportation Issues: No Has anyone in your support network made you feel unsafe?: No - Physical Exam Vital Signs: Vital Signs - 24 hr Pulse Resp BP BP Pulse Ox 11/30/24 13:01 43 L 13 127/62 100 11/30/24 12:30 47 L 16 115/55 11/30/24 12:00 49 L 14 137/74 99 11/30/24 11:39 43 L 14 147/74 11/30/24 11:18 167/95 11/30/24 10:49 100 11/30/24 10:31 46 L 16 138/76 11/30/24 10:00 47 L 16 159/85 11/30/24 09:30 46 L 16 134/78 11/30/24 09:01 57 L 15 148/85 11/30/24 08:31 55 L 14 159/94 11/30/24 08:00 59 L 16 122/77 11/30/24 07:44 52 L 16 130/81 11/30/24 07:08 68 23 174/87 11/30/24 07:05 174/87 General Appearance: no apparent distress Neurologic Exam: sensory deficit (RUE/RLE), motor weakness (RUE/RLE), facial droop, slurred speech, dysarthria, other (Drowsy but arousable, able to follow simple commands Dense right-sided hemiplegia. No body builder strength in right hand, no movement in right arm or leg. Left upper and lower extremities 5/5 strength. Sensory: Decreased sensation to light touch on right upper and lower extremities.) Eye Exam: PERRL/EOMI Ears, Nose, Throat Exam: normal ENT inspection Neck Exam: normal inspection Respiratory Exam: normal breath sounds, lungs clear Cardiovascular Exam: regular rate/rhythm, normal heart sounds Rectal Exam: deferred Back Exam: normal inspection Extremity Exam: normal inspection Skin Exam: normal color Results - Labs Lab/Micro Results: Lab Results-Last 24 Hours 11/30/24 11/30/24 11/30/24 Range/Units 07:12 07:22 07:22 WBC 12.3 H (4.23-9.07) x10^3/uL RBC 4.77 (4.63-6.08) x10^6/uL Hgb 15.2 (13.7-17.5) g/dL Hct 44.7 (40.1-51.0) % MCV 93.7 H (79.0-92.2) fL MCH 31.9 (25.7-32.2) pg MCHC 34.0 (32.3-36.5) g/dL RDW 13.1 (11.6-14.4) % Plt Count 275 (163-337) x10^3/uL MPV 10.9 (9.4-12.4) fL Gran % 57.4 (34.0-67.9) % Immature Gran % (Auto) 0.4 (0.001-0.429) % Nucleat RBC Rel Count 0.0 (0.00-0.2) % Eos # (Auto) 0.20 (0.04-0.54) x10^3/uL Immature Gran # (Auto) 0.05 H (0.001-0.031) x10^3u/L Absolute Lymphs (auto) 3.73 H (1.32-3.57) x10^3/uL Absolute Monos (auto) 1.20 H (0.30-0.82) x10^3/uL Absolute Nucleated RBC 0.00 (0.00-0.012) x10^3u/L Lymphocytes % 30.3 (21.8-53.1) % Monocytes % 9.7 (5.3-12.2) % Eosinophils % 1.6 (0.8-7.0) % Basophils % 0.6 (0.2-1.2) % Absolute Granulocytes 7.07 H (1.78-5.38) x10^3/uL Basophils # 0.07 (0.01-0.08) x10^3/uL PT (9.4-12.5) SECONDS INR (0.8-3.0) Sodium 141 (135-145) mmol/L Potassium 4.0 (3.5-5.1) mmol/L Chloride 104 (98-107) mmol/L Carbon Dioxide 26 (22-30) mmol/L Anion Gap 15.1 H (5-15) MEQ/L BUN 19 (9-20) mg/dL Creatinine 0.93 (0.66-1.25) mg/dL Estimated GFR 95.2 ML/MIN Glucose 120 H (74-106) mg/dL POC Glucometer 109 H (74 to 106) mg/dL Lactic Acid (0.4-2.0) Calcium 9.4 (8.4-10.2) mg/dL Total Bilirubin 0.20 (0.2-1.3) mg/dL AST 29 (17-59) U/L ALT 27 (0-50) U/L Alkaline Phosphatase 85 (38-126) U/L Troponin I (0.000-0.033) ng/mL Serum Total Protein 7.7 (6.3-8.2) g/dL Albumin 4.8 (3.5-5.0) g/dL Urine Color (Yellow) Urine Appearance (Clear) Urine pH (4.6-8.0) Ur Specific Johnston (1.005-1.030) Urine Protein (Negative) Urine Glucose (UA) (Negative) mg/dL Urine Ketones (Negative) Urine Blood (Negative) Urine Nitrite (Negative) Urine Bilirubin (Negative) Urine Urobilinogen (0.2) mg/dL Ur Leukocyte Esterase (Negative) U Hyaline Cast (Auto) (0-2) /LPF Urine Microscopic RBC (0-5) /HPF Urine Microscopic WBC (0-5) /HPF Ur Epithelial Cells (None Seen) /HPF Urine Bacteria (None Seen) /HPF Urine Culture Reflexed (NO) Salicylates < 1.0 L (2-20) mg/dL Urine Opiates Level (NEGATIVE) Ur Methadone (NEGATIVE) Acetaminophen < 10 L (10-30) ug/ml Urine Barbiturates (NEGATIVE) Ur Phencyclidine (PCP) (NEGATIVE) Urine Amphetamine (NEGATIVE) U Benzodiazepine Level (NEGATIVE) Urine Cocaine (NEGATIVE) Urine Marijuana (THC) (NEGATIVE) Ethyl Alcohol < 10 (0-10) mg/dL 11/30/24 11/30/24 11/30/24 Range/Units 07:22 07:22 08:40 WBC (4.23-9.07) x10^3/uL RBC (4.63-6.08) x10^6/uL Hgb (13.7-17.5) g/dL Hct (40.1-51.0) % MCV (79.0-92.2) fL MCH (25.7-32.2) pg MCHC (32.3-36.5) g/dL RDW (11.6-14.4) % Plt Count (163-337) x10^3/uL MPV (9.4-12.4) fL Gran % (34.0-67.9) % Immature Gran % (Auto) (0.001-0.429) % Nucleat RBC Rel Count (0.00-0.2) % Eos # (Auto) (0.04-0.54) x10^3/uL Immature Gran # (Auto) (0.001-0.031) x10^3u/L Absolute Lymphs (auto) (1.32-3.57) x10^3/uL Absolute Monos (auto) (0.30-0.82) x10^3/uL Absolute Nucleated RBC (0.00-0.012) x10^3u/L Lymphocytes % (21.8-53.1) % Monocytes % (5.3-12.2) % Eosinophils % (0.8-7.0) % Basophils % (0.2-1.2) % Absolute Granulocytes (1.78-5.38) x10^3/uL Basophils # (0.01-0.08) x10^3/uL PT 9.7 (9.4-12.5) SECONDS INR 0.88 (0.8-3.0) Sodium (135-145) mmol/L Potassium (3.5-5.1) mmol/L Chloride (98-107) mmol/L Carbon Dioxide (22-30) mmol/L Anion Gap (5-15) MEQ/L BUN (9-20) mg/dL Creatinine (0.66-1.25) mg/dL Estimated GFR ML/MIN Glucose (74-106) mg/dL POC Glucometer (74 to 106) mg/dL Lactic Acid (0.4-2.0) Calcium (8.4-10.2) mg/dL Total Bilirubin (0.2-1.3) mg/dL AST (17-59) U/L ALT (0-50) U/L Alkaline Phosphatase (38-126) U/L Troponin I < 0.012 (0.000-0.033) ng/mL Serum Total Protein (6.3-8.2) g/dL Albumin (3.5-5.0) g/dL Urine Color Yellow (Yellow) Urine Appearance Clear (Clear) Urine pH 6.5 (4.6-8.0) Ur Specific Johnston 1.015 (1.005-1.030) Urine Protein Negative (Negative) Urine Glucose (UA) Negative (Negative) mg/dL Urine Ketones Negative (Negative) Urine Blood Negative (Negative) Urine Nitrite Negative (Negative) Urine Bilirubin Negative (Negative) Urine Urobilinogen 0.2 (0.2) mg/dL Ur Leukocyte Esterase Negative (Negative) U Hyaline Cast (Auto) NONE SEEN (0-2) /LPF Urine Microscopic RBC 0-2 (0-5) /HPF Urine Microscopic WBC 0-2 (0-5) /HPF Ur Epithelial Cells None Seen (None Seen) /HPF Urine Bacteria None Seen (None Seen) /HPF Urine Culture Reflexed NO (NO) Salicylates (2-20) mg/dL Urine Opiates Level (NEGATIVE) Ur Methadone (NEGATIVE) Acetaminophen (10-30) ug/ml Urine Barbiturates (NEGATIVE) Ur Phencyclidine (PCP) (NEGATIVE) Urine Amphetamine (NEGATIVE) U Benzodiazepine Level (NEGATIVE) Urine Cocaine (NEGATIVE) Urine Marijuana (THC) (NEGATIVE) Ethyl Alcohol (0-10) mg/dL 11/30/24 11/30/24 11/30/24 Range/Units 08:40 10:00 10:02 WBC (4.23-9.07) x10^3/uL RBC (4.63-6.08) x10^6/uL Hgb (13.7-17.5) g/dL Hct (40.1-51.0) % MCV (79.0-92.2) fL MCH (25.7-32.2) pg MCHC (32.3-36.5) g/dL RDW (11.6-14.4) % Plt Count (163-337) x10^3/uL MPV (9.4-12.4) fL Gran % (34.0-67.9) % Immature Gran % (Auto) (0.001-0.429) % Nucleat RBC Rel Count (0.00-0.2) % Eos # (Auto) (0.04-0.54) x10^3/uL Immature Gran # (Auto) (0.001-0.031) x10^3u/L Absolute Lymphs (auto) (1.32-3.57) x10^3/uL Absolute Monos (auto) (0.30-0.82) x10^3/uL Absolute Nucleated RBC (0.00-0.012) x10^3u/L Lymphocytes % (21.8-53.1) % Monocytes % (5.3-12.2) % Eosinophils % (0.8-7.0) % Basophils % (0.2-1.2) % Absolute Granulocytes (1.78-5.38) x10^3/uL Basophils # (0.01-0.08) x10^3/uL PT (9.4-12.5) SECONDS INR (0.8-3.0) Sodium (135-145) mmol/L Potassium (3.5-5.1) mmol/L Chloride (98-107) mmol/L Carbon Dioxide (22-30) mmol/L Anion Gap (5-15) MEQ/L BUN (9-20) mg/dL Creatinine (0.66-1.25) mg/dL Estimated GFR ML/MIN Glucose (74-106) mg/dL POC Glucometer (74 to 106) mg/dL Lactic Acid 1.4 (0.4-2.0) Calcium (8.4-10.2) mg/dL Total Bilirubin (0.2-1.3) mg/dL AST (17-59) U/L ALT (0-50) U/L Alkaline Phosphatase (38-126) U/L Troponin I 0.016 (0.000-0.033) ng/mL Serum Total Protein (6.3-8.2) g/dL Albumin (3.5-5.0) g/dL Urine Color (Yellow) Urine Appearance (Clear) Urine pH (4.6-8.0) Ur Specific Johnston (1.005-1.030) Urine Protein (Negative) Urine Glucose (UA) (Negative) mg/dL Urine Ketones (Negative) Urine Blood (Negative) Urine Nitrite (Negative) Urine Bilirubin (Negative) Urine Urobilinogen (0.2) mg/dL Ur Leukocyte Esterase (Negative) U Hyaline Cast (Auto) (0-2) /LPF Urine Microscopic RBC (0-5) /HPF Urine Microscopic WBC (0-5) /HPF Ur Epithelial Cells (None Seen) /HPF Urine Bacteria (None Seen) /HPF Urine Culture Reflexed (NO) Salicylates (2-20) mg/dL Urine Opiates Level NEGATIVE (NEGATIVE) Ur Methadone NEGATIVE (NEGATIVE) Acetaminophen (10-30) ug/ml Urine Barbiturates NEGATIVE (NEGATIVE) Ur Phencyclidine (PCP) NEGATIVE (NEGATIVE) Urine Amphetamine NEGATIVE (NEGATIVE) U Benzodiazepine Level NEGATIVE (NEGATIVE) Urine Cocaine NEGATIVE (NEGATIVE) Urine Marijuana (THC) POSITIVE A (NEGATIVE) Ethyl Alcohol (0-10) mg/dL - Radiology Impressions Radiology Exams & Impressions: Radiology Procedures Category Date Time Status CHEST 1 VIEW (PORTABLE) Stat Exams 11/30/24 07:[address] ANGIOGRAPHY NECK [CT] Stat Exams 11/30/24 11:07 Completed CTA HEAD W AND/OR WO CONTRAST [CT] Stat Exams 11/30/24 11:06 Completed HEAD WITHOUT CONTRAST [CT] Stat Exams 11/30/24 07:14 Completed MRI BRAIN W/O CONTRAST [MRI] Stat Exams 11/30/24 13:12 Taken Assessment/Plan (2) Stroke-like symptom Current Visit: Yes Status: Acute Assessment & Plan: -Right-sided weakness, facial droop, dysarthria, onset prior to 7:00 AM. -CT head with chronic infarcts only, no acute hemorrhage; CTA head/neck without LVO. -Troponins negative; no metabolic cause found besides mild AG acidosis. -Neurology consulted with recs for: MRI brain without contrast for confirmation of ischemia and to differentiate from post-ictal changes;permissive hypertension allowed up to 220/120 mmHg for 24 hours;Antiplatelet therapy: initiate aspirin 81 mg daily. -Statin therapy: start atorvastatin 80 mg daily; TTE with bubble study to evaluate for cardioembolic source (bubble study not available will obtain echo) -PT/OT/STORE ADMINISTRATIVE ASSISTANT consults for rehabilitation and swallow assessment. -lipid, A1c -Pole Inspector on risk factor modification including smoking cessation Code(s): R29.90 - UNSPECIFIED SYMPTOMS AND SIGNS INVOLVING THE NERVOUS SYSTEM (3) Leukocytosis Current Visit: Yes Status: Acute Code(s): D72.829 - ELEVATED WHITE BLOOD CELL COUNT, UNSPECIFIED (4) High anion gap metabolic acidosis Current Visit: Yes Status: Acute Code(s): E87.29 - OTHER ACIDOSIS (5) Seizure disorder Current Visit: Yes Status: Acute Assessment & Plan: -History: prior seizures, witnessed shaking described as generalized tremors, treated with lorazepam in ED; postictal drowsiness, evolving focal weakness -Place on seizure precautions. -EEG if further episodes occur or if MRI raises concern for seizure focus. -Avoid unnecessary benzodiazepines unless recurrent seizure activity is witnessed. -Outpatient neurology follow-up for seizure management and consideration of maintenance AED therapy, as patient is not currently on any antiseizure medication. Code(s): G40.909 - EPILEPSY, UNSP, NOT INTRACTABLE, WITHOUT STATUS EPILEPTICUS (6) Remote history of stroke Current Visit: Yes Status: Acute Assessment & Plan: -Seen on CT head as chronic changes, no acute process -Secondary prevention overlaps with current stroke plan (aspirin, statin, risk factor modification). -Pole Inspector on recognition of recurrent stroke symptoms and urgent evaluation. Code(s): Z86.73 - PRSNL HX OF TIA (TIA), AND CEREB INFRC W/O RESID DEFICITS (7) Tobacco abuse Current Visit: Yes Status: Acute Assessment & Plan: -Strong counseling for cessation, provide nicotine replacement therapy or varenicline as appropriate. -Outpatient referral to smoking cessation program -nicotine patch Code(s): Z72.0 - TOBACCO USE (8) Cannabis abuse Current Visit: Yes Status: Acute Assessment & Plan: -Urine drug screen positive for THC, social history consistent with daily use. -Pole Inspector regarding potential neurologic effects, seizure threshold, and impact on recovery. -Recommend reduction/cessation Code(s): F12.10 - CANNABIS ABUSE, UNCOMPLICATED (9) Degenerative disc disease, cervical Current Visit: Yes Status: Acute Assessment & Plan: -CTA neck demonstrated chronic spondylosis. -No acute intervention required. -Consider outpatient spine referral if symptomatic VTE: ASA/SCD PPI: protonix Dispo: 1-2 days Code status: Full Code Plan of care time spent > 40 mins Code(s): M50.30 - OTHER CERVICAL DISC DEGENERATION, UNSP CERVICAL REGION Telemedicine Encounter - Telemedicine Encounter Telemedicine Encounter: "The entirety of this encounter was performed via Telemedicine" This visit was performed using real-time audio and video connection between my location and thepatients locationwith the assistance of a surrogateat the patients location. Written or verbal consent was obtained from the patient/guardian to perform this visit usings[employer] technology. Any patient questions regarding the telemedicine interaction were answered. <LETICIA VICTOR - Last Filed: 11/30/24 22:17> History of Present Illness - Chief Complaint History of Present Illness: is a 58 year old male. - Physical Exam Vital Signs: Vital Signs - 24 hr Temp Pulse Resp BP BP Pulse Ox 11/30/24 19:33 97.8 F 49 L 16 159/56 97 11/30/24 16:58 97 11/30/24 14:58 97.5 F 45 L 15 160/83 96 11/30/24 14:17 97.5 F 45 L 18 160/83 96 11/30/24 13:52 97 11/30/24 13:01 43 L 13 127/62 100 11/30/24 12:30 47 L 16 115/55 100 11/30/24 12:00 49 L 14 137/74 99 11/30/24 11:39 43 L 14 147/74 11/30/24 11:18 167/95 11/30/24 10:49 100 11/30/24 10:31 46 L 16 138/76 11/30/24 10:00 47 L 16 159/85 11/30/24 09:30 46 L 16 134/78 11/30/24 09:01 57 L 15 148/85 11/30/24 08:31 55 L 14 159/94 11/30/24 08:00 59 L 16 122/77 11/30/24 07:44 52 L 16 130/81 11/30/24 07:08 68 23 174/87 11/30/24 07:05 174/87 Results - Labs Lab/Micro Results: Lab Results-Last 24 Hours 11/30/24 11/30/24 11/30/24 Range/Units 07:12 07:22 07:22 WBC 12.3 H (4.23-9.07) x10^3/uL RBC 4.77 (4.63-6.08) x10^6/uL Hgb 15.2 (13.7-17.5) g/dL Hct 44.7 (40.1-51.0) % MCV 93.7 H (79.0-92.2) fL MCH 31.9 (25.7-32.2) pg MCHC 34.0 (32.3-36.5) g/dL RDW 13.1 (11.6-14.4) % Plt Count 275 (163-337) x10^3/uL MPV 10.9 (9.4-12.4) fL Gran % 57.4 (34.0-67.9) % Immature Gran % (Auto) 0.4 (0.001-0.429) % Nucleat RBC Rel Count 0.0 (0.00-0.2) % Eos # (Auto) 0.20 (0.04-0.54) x10^3/uL Immature Gran # (Auto) 0.05 H (0.001-0.031) x10^3u/L Absolute Lymphs (auto) 3.73 H (1.32-3.57) x10^3/uL Absolute Monos (auto) 1.20 H (0.30-0.82) x10^3/uL Absolute Nucleated RBC 0.00 (0.00-0.012) x10^3u/L Lymphocytes % 30.3 (21.8-53.1) % Monocytes % 9.7 (5.3-12.2) % Eosinophils % 1.6 (0.8-7.0) % Basophils % 0.6 (0.2-1.2) % Absolute Granulocytes 7.07 H (1.78-5.38) x10^3/uL Basophils # 0.07 (0.01-0.08) x10^3/uL PT (9.4-12.5) SECONDS INR (0.8-3.0) Sodium 141 (135-145) mmol/L Potassium 4.0 (3.5-5.1) mmol/L Chloride 104 (98-107) mmol/L Carbon Dioxide 26 (22-30) mmol/L Anion Gap 15.1 H (5-15) MEQ/L BUN 19 (9-20) mg/dL Creatinine 0.93 (0.66-1.25) mg/dL Estimated GFR 95.2 ML/MIN Glucose 120 H (74-106) mg/dL POC Glucometer 109 H (74 to 106) mg/dL Hemoglobin A1c (4.5-6.0) % Lactic Acid (0.4-2.0) Calcium 9.4 (8.4-10.2) mg/dL Total Bilirubin 0.20 (0.2-1.3) mg/dL AST 29 (17-59) U/L ALT 27 (0-50) U/L Alkaline Phosphatase 85 (38-126) U/L Troponin I (0.000-0.033) ng/mL Serum Total Protein 7.7 (6.3-8.2) g/dL Albumin 4.8 (3.5-5.0) g/dL Urine Color (Yellow) Urine Appearance (Clear) Urine pH (4.6-8.0) Ur Specific Johnston (1.005-1.030) Urine Protein (Negative) Urine Glucose (UA) (Negative) mg/dL Urine Ketones (Negative) Urine Blood (Negative) Urine Nitrite (Negative) Urine Bilirubin (Negative) Urine Urobilinogen (0.2) mg/dL Ur Leukocyte Esterase (Negative) U Hyaline Cast (Auto) (0-2) /LPF Urine Microscopic RBC (0-5) /HPF Urine Microscopic WBC (0-5) /HPF Ur Epithelial Cells (None Seen) /HPF Urine Bacteria (None Seen) /HPF Urine Culture Reflexed (NO) Salicylates < 1.0 L (2-20) mg/dL Urine Opiates Level (NEGATIVE) Ur Methadone (NEGATIVE) Acetaminophen < 10 L (10-30) ug/ml Urine Barbiturates (NEGATIVE) Ur Phencyclidine (PCP) (NEGATIVE) Urine Amphetamine (NEGATIVE) U Benzodiazepine Level (NEGATIVE) Urine Cocaine (NEGATIVE) Urine Marijuana (THC) (NEGATIVE) Ethyl Alcohol < 10 (0-10) mg/dL 11/30/24 11/30/24 11/30/24 Range/Units 07:22 07:22 08:40 WBC (4.23-9.07) x10^3/uL RBC (4.63-6.08) x10^6/uL Hgb (13.7-17.5) g/dL Hct (40.1-51.0) % MCV (79.0-92.2) fL MCH (25.7-32.2) pg MCHC (32.3-36.5) g/dL RDW (11.6-14.4) % Plt Count (163-337) x10^3/uL MPV (9.4-12.4) fL Gran % (34.0-67.9) % Immature Gran % (Auto) (0.001-0.429) % Nucleat RBC Rel Count (0.00-0.2) % Eos # (Auto) (0.04-0.54) x10^3/uL Immature Gran # (Auto) (0.001-0.031) x10^3u/L Absolute Lymphs (auto) (1.32-3.57) x10^3/uL Absolute Monos (auto) (0.30-0.82) x10^3/uL Absolute Nucleated RBC (0.00-0.012) x10^3u/L Lymphocytes % (21.8-53.1) % Monocytes % (5.3-12.2) % Eosinophils % (0.8-7.0) % Basophils % (0.2-1.2) % Absolute Granulocytes (1.78-5.38) x10^3/uL Basophils # (0.01-0.08) x10^3/uL PT 9.7 (9.4-12.5) SECONDS INR 0.88 (0.8-3.0) Sodium (135-145) mmol/L Potassium (3.5-5.1) mmol/L Chloride (98-107) mmol/L Carbon Dioxide (22-30) mmol/L Anion Gap (5-15) MEQ/L BUN (9-20) mg/dL Creatinine (0.66-1.25) mg/dL Estimated GFR ML/MIN Glucose (74-106) mg/dL POC Glucometer (74 to 106) mg/dL Hemoglobin A1c (4.5-6.0) % Lactic Acid (0.4-2.0) Calcium (8.4-10.2) mg/dL Total Bilirubin (0.2-1.3) mg/dL AST (17-59) U/L ALT (0-50) U/L Alkaline Phosphatase (38-126) U/L Troponin I < 0.012 (0.000-0.033) ng/mL Serum Total Protein (6.3-8.2) g/dL Albumin (3.5-5.0) g/dL Urine Color Yellow (Yellow) Urine Appearance Clear (Clear) Urine pH 6.5 (4.6-8.0) Ur Specific Johnston 1.015 (1.005-1.030) Urine Protein Negative (Negative) Urine Glucose (UA) Negative (Negative) mg/dL Urine Ketones Negative (Negative) Urine Blood Negative (Negative) Urine Nitrite Negative (Negative) Urine Bilirubin Negative (Negative) Urine Urobilinogen 0.2 (0.2) mg/dL Ur Leukocyte Esterase Negative (Negative) U Hyaline Cast (Auto) NONE SEEN (0-2) /LPF Urine Microscopic RBC 0-2 (0-5) /HPF Urine Microscopic WBC 0-2 (0-5) /HPF Ur Epithelial Cells None Seen (None Seen) /HPF Urine Bacteria None Seen (None Seen) /HPF Urine Culture Reflexed NO (NO) Salicylates (2-20) mg/dL Urine Opiates Level (NEGATIVE) Ur Methadone (NEGATIVE) Acetaminophen (10-30) ug/ml Urine Barbiturates (NEGATIVE) Ur Phencyclidine (PCP) (NEGATIVE) Urine Amphetamine (NEGATIVE) U Benzodiazepine Level (NEGATIVE) Urine Cocaine (NEGATIVE) Urine Marijuana (THC) (NEGATIVE) Ethyl Alcohol (0-10) mg/dL 11/30/24 11/30/24 11/30/24 Range/Units 08:40 10:00 10:02 WBC (4.23-9.07) x10^3/uL RBC (4.63-6.08) x10^6/uL Hgb (13.7-17.5) g/dL Hct (40.1-51.0) % MCV (79.0-92.2) fL MCH (25.7-32.2) pg MCHC (32.3-36.5) g/dL RDW (11.6-14.4) % Plt Count (163-337) x10^3/uL MPV (9.4-12.4) fL Gran % (34.0-67.9) % Immature Gran % (Auto) (0.001-0.429) % Nucleat RBC Rel Count (0.00-0.2) % Eos # (Auto) (0.04-0.54) x10^3/uL Immature Gran # (Auto) (0.001-0.031) x10^3u/L Absolute Lymphs (auto) (1.32-3.57) x10^3/uL Absolute Monos (auto) (0.30-0.82) x10^3/uL Absolute Nucleated RBC (0.00-0.012) x10^3u/L Lymphocytes % (21.8-53.1) % Monocytes % (5.3-12.2) % Eosinophils % (0.8-7.0) % Basophils % (0.2-1.2) % Absolute Granulocytes (1.78-5.38) x10^3/uL Basophils # (0.01-0.08) x10^3/uL PT (9.4-12.5) SECONDS INR (0.8-3.0) Sodium (135-145) mmol/L Potassium (3.5-5.1) mmol/L Chloride (98-107) mmol/L Carbon Dioxide (22-30) mmol/L Anion Gap (5-15) MEQ/L BUN (9-20) mg/dL Creatinine (0.66-1.25) mg/dL Estimated GFR ML/MIN Glucose (74-106) mg/dL POC Glucometer (74 to 106) mg/dL Hemoglobin A1c (4.5-6.0) % Lactic Acid 1.4 (0.4-2.0) Calcium (8.4-10.2) mg/dL Total Bilirubin (0.2-1.3) mg/dL AST (17-59) U/L ALT (0-50) U/L Alkaline Phosphatase (38-126) U/L Troponin I 0.016 (0.000-0.033) ng/mL Serum Total Protein (6.3-8.2) g/dL Albumin (3.5-5.0) g/dL Urine Color (Yellow) Urine Appearance (Clear) Urine pH (4.6-8.0) Ur Specific [place] (1.005-1.030) Urine Protein (Negative) Urine Glucose (UA) (Negative) mg/dL Urine Ketones (Negative) Urine Blood (Negative) Urine Nitrite (Negative) Urine Bilirubin (Negative) Urine Urobilinogen (0.2) mg/dL Ur Leukocyte Esterase (Negative) U Hyaline Cast (Auto) (0-2) /LPF Urine Microscopic RBC (0-5) /HPF Urine Microscopic WBC (0-5) /HPF Ur Epithelial Cells (None Seen) /HPF Urine Bacteria (None Seen) /HPF Urine Culture Reflexed (NO) Salicylates (2-20) mg/dL Urine Opiates Level NEGATIVE (NEGATIVE) Ur Methadone NEGATIVE (NEGATIVE) Acetaminophen (10-30) ug/ml Urine Barbiturates NEGATIVE (NEGATIVE) Ur Phencyclidine (PCP) NEGATIVE (NEGATIVE) Urine Amphetamine NEGATIVE (NEGATIVE) U Benzodiazepine Level NEGATIVE (NEGATIVE) Urine Cocaine NEGATIVE (NEGATIVE) Urine Marijuana (THC) POSITIVE A (NEGATIVE) Ethyl Alcohol (0-10) mg/dL 11/30/24 11/30/24 11/30/24 Range/Units 15:15 15:15 19:23 WBC (4.23-9.07) x10^3/uL RBC (4.63-6.08) x10^6/uL Hgb (13.7-17.5) g/dL Hct (40.1-51.0) % MCV (79.0-92.2) fL MCH (25.7-32.2) pg MCHC (32.3-36.5) g/dL RDW (11.6-14.4) % Plt Count (163-337) x10^3/uL MPV (9.4-12.4) fL Gran % (34.0-67.9) % Immature Gran % (Auto) (0.001-0.429) % Nucleat RBC Rel Count (0.00-0.2) % Eos # (Auto) (0.04-0.54) x10^3/uL Immature Gran # (Auto) (0.001-0.031) x10^3u/L Absolute Lymphs (auto) (1.32-3.57) x10^3/uL Absolute Monos (auto) (0.30-0.82) x10^3/uL Absolute Nucleated RBC (0.00-0.012) x10^3u/L Lymphocytes % (21.8-53.1) % Monocytes % (5.3-12.2) % Eosinophils % (0.8-7.0) % Basophils % (0.2-1.2) % Absolute Granulocytes (1.78-5.38) x10^3/uL Basophils # (0.01-0.08) x10^3/uL PT (9.4-12.5) SECONDS INR (0.8-3.0) Sodium (135-145) mmol/L Potassium (3.5-5.1) mmol/L Chloride (98-107) mmol/L Carbon Dioxide (22-30) mmol/L Anion Gap (5-15) MEQ/L BUN (9-20) mg/dL Creatinine (0.66-1.25) mg/dL Estimated GFR ML/MIN Glucose (74-106) mg/dL POC Glucometer 98 (74 to 106) mg/dL Hemoglobin A1c 5.51 (4.5-6.0) % Lactic Acid (0.4-2.0) Calcium (8.4-10.2) mg/dL Total Bilirubin (0.2-1.3) mg/dL AST (17-59) U/L ALT (0-50) U/L Alkaline Phosphatase (38-126) U/L Troponin I < 0.012 (0.000-0.033) ng/mL Serum Total Protein (6.3-8.2) g/dL Albumin (3.5-5.0) g/dL Urine Color (Yellow) Urine Appearance (Clear) Urine pH (4.6-8.0) Ur Specific Johnston (1.005-1.030) Urine Protein (Negative) Urine Glucose (UA) (Negative) mg/dL Urine Ketones (Negative) Urine Blood (Negative) Urine Nitrite (Negative) Urine Bilirubin (Negative) Urine Urobilinogen (0.2) mg/dL Ur Leukocyte Esterase (Negative) U Hyaline Cast (Auto) (0-2) /LPF Urine Microscopic RBC (0-5) /HPF Urine Microscopic WBC (0-5) /HPF Ur Epithelial Cells (None Seen) /HPF Urine Bacteria (None Seen) /HPF Urine Culture Reflexed (NO) Salicylates (2-20) mg/dL Urine Opiates Level (NEGATIVE) Ur Methadone (NEGATIVE) Acetaminophen (10-30) ug/ml Urine Barbiturates (NEGATIVE) Ur Phencyclidine (PCP) (NEGATIVE) Urine Amphetamine (NEGATIVE) U Benzodiazepine Level (NEGATIVE) Urine Cocaine (NEGATIVE) Urine Marijuana (THC) (NEGATIVE) Ethyl Alcohol (0-10) mg/dL 11/30/24 Range/Units 19:30 WBC (4.23-9.07) x10^3/uL RBC (4.63-6.08) x10^6/uL Hgb (13.7-17.5) g/dL Hct (40.1-51.0) % MCV (79.0-92.2) fL MCH (25.7-32.2) pg MCHC (32.3-36.5) g/dL RDW (11.6-14.4) % Plt Count (163-337) x10^3/uL MPV (9.4-12.4) fL Gran % (34.0-67.9) % Immature Gran % (Auto) (0.001-0.429) % Nucleat RBC Rel Count (0.00-0.2) % Eos # (Auto) (0.04-0.54) x10^3/uL Immature Gran # (Auto) (0.001-0.031) x10^3u/L Absolute Lymphs (auto) (1.32-3.57) x10^3/uL Absolute Monos (auto) (0.30-0.82) x10^3/uL Absolute Nucleated RBC (0.00-0.012) x10^3u/L Lymphocytes % (21.8-53.1) % Monocytes % (5.3-12.2) % Eosinophils % (0.8-7.0) % Basophils % (0.2-1.2) % Absolute Granulocytes (1.78-5.38) x10^3/uL Basophils # (0.01-0.08) x10^3/uL PT (9.4-12.5) SECONDS INR (0.8-3.0) Sodium (135-145) mmol/L Potassium (3.5-5.1) mmol/L Chloride (98-107) mmol/L Carbon Dioxide (22-30) mmol/L Anion Gap (5-15) MEQ/L BUN (9-20) mg/dL Creatinine (0.66-1.25) mg/dL Estimated GFR ML/MIN Glucose (74-106) mg/dL POC Glucometer (74 to 106) mg/dL Hemoglobin A1c (4.5-6.0) % Lactic Acid (0.4-2.0) Calcium (8.4-10.2) mg/dL Total Bilirubin (0.2-1.3) mg/dL AST (17-59) U/L ALT (0-50) U/L Alkaline Phosphatase (38-126) U/L Troponin I < 0.012 (0.000-0.033) ng/mL Serum Total Protein (6.3-8.2) g/dL Albumin (3.5-5.0) g/dL Urine Color (Yellow) Urine Appearance (Clear) Urine pH (4.6-8.0) Ur Specific Johnston (1.005-1.030) Urine Protein (Negative) Urine Glucose (UA) (Negative) mg/dL Urine Ketones (Negative) Urine Blood (Negative) Urine Nitrite (Negative) Urine Bilirubin (Negative) Urine Urobilinogen (0.2) mg/dL Ur Leukocyte Esterase (Negative) U Hyaline Cast (Auto) (0-2) /LPF Urine Microscopic RBC (0-5) /HPF Urine Microscopic WBC (0-5) /HPF Ur Epithelial Cells (None Seen) /HPF Urine Bacteria (None Seen) /HPF Urine Culture Reflexed (NO) Salicylates (2-20) mg/dL Urine Opiates Level (NEGATIVE) Ur Methadone (NEGATIVE) Acetaminophen (10-30) ug/ml Urine Barbiturates (NEGATIVE) Ur Phencyclidine (PCP) (NEGATIVE) Urine Amphetamine (NEGATIVE) U Benzodiazepine Level (NEGATIVE) Urine Cocaine (NEGATIVE) Urine Marijuana (THC) (NEGATIVE) Ethyl Alcohol (0-10) mg/dL - Radiology Impressions Radiology Exams & Impressions: Radiology Procedures Category Date Time Status CHEST 1 VIEW (PORTABLE) Stat Exams 11/30/24 07:[address] ANGIOGRAPHY NECK [CT] Stat Exams 11/30/24 11:07 Completed CTA HEAD W AND/OR WO CONTRAST [CT] Stat Exams 11/30/24 11:06 Completed ECHO W/2D AND DOPPLER [US] Routine Exams 12/01/24 15:11 Ordered HEAD WITHOUT CONTRAST [CT] Stat Exams 11/30/24 07:14 Completed MRI BRAIN W/O CONTRAST [MRI] Stat Exams 11/30/24 13:12 Completed Telemedicine Encounter - Telemedicine Encounter Telemedicine Encounter: "The entirety of this encounter was performed via Telemedicine" This visit was performed using real-time audio and video connection between my location and thepatients locationwith the assistance of a surrogateat the patients location. Written or verbal consent was obtained from the patient/guardian to perform [facility]. Any patient questions regarding the telemedicine interaction were answered. TOMAS Encounter - TOMAS Encounter Attestation TOMAS Encounter Attestation: "MAYANK Padgett androbiscussed pertinent aspects of their care with Walter Crabtree and agree with the history, physical exam (any modifications based on my personal exam will be noted below), assessment, and plan as outlined in original note. Please see immediately below for my summary of findings and additional assessment and plan along with any meaningful corrections/explanations to the Subjective/Objective portions of the TOMAS note will be noted." My portion of the encounter took place via telemedicine. -Patient presents with right sided weakness, reports duration of 2 days. 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 Family requested transfer to [place] which was initiated and sign out given to hospitalist.
[2024-11-30] MEDS ORDERED: Zofran 4 MG/2 ML VIAL IV PRN (15:06)
--- NOTE | 2024-11-30 15:06 | XRAY ---
Indication: Stroke. Sagittal, coronal, and axial MRI brain performed without contrast using T1, T2, FLAIR, diffusion, and ADC sequences. Comparison: None Age-appropriate global atrophy , minimal periventricular degenerative micro ischemia bilaterally, and remote lacunar infarct right basal ganglia. Small focus remote infarcts anterior left parietal lobe and left occipital lobe. Diffusion images demonstrates 1.9 x 0.4 cm linear restricted signal posterior arm left internal capsule favoring ischemia. No acute intracranial hemorrhage, hydrocephalus, or mass effect. 4th ventricle is midline. 7/8 cranial nerve complex bilaterally symmetric. Normal flow void signal within the major intracerebral circulation. Paranasal sinuses are clear. Impression: 1. 1.9 x 0.4 cm acute ischemia left internal capsule. No acute hemorrhage/mass effect. 2. Small remote lacunar infarcts left parietal/left occipital lobes and remote lacunar infarct right basal ganglia. 3. Atrophy and degenerative micro ischemia within normal limits.
--- NOTE | 2024-11-30 16:35 | PCM.DS ---
Discharge Summary Date of Admission: 11/30/24 14:12 Date of Discharge: 11/30/24 Admitting Physician: LETICIA VICTOR MD Primary Care Provider: NO FAMILY DOCTOR Allergies Allergies No Known Drug Allergies Allergy (Verified 11/30/24 14:28) Hospital Summary - Hospital Course Hospital Course: Mr. Womack is a 58-year-old male with a history of seizures, not currently on antiepileptic therapy, who presented on 11/30/24 with acute neurologic symptoms. Earlier that morning, after drinking a [employer], he developed gait instability, slurred speech, and right-sided numbness and weakness involving both the arm and leg. In the emergency department he experienced generalized shaking episodes that resolved with lorazepam, followed by drowsiness. As sedation wore off, he continued to exhibit right hemiparesis, facial droop, and dysarthria, prompting a stroke alert. On exam, he was drowsy but arousable, with slurred speech, right lower facial droop, profound weakness of the right upper and lower extremities, and diminished sensation on the right side. Initial studies showed stable vital signs, WBC 12.3 consistent with mild leukocytosis, and an anion gap of 15.1 without a clear metabolic cause. Serial troponins were negative. Urinalysis was unremarkable, and urine drug screen was positive for THC. Chest x-ray revealed no acute findings. CT head showed chronic infarcts without acute hemorrhage, and CTA head/neck demonstrated no large vessel occlusion but did reveal chronic cervical spondylosis. MRI brain confirmed a 1.9 x 0.4 cm acute ischemic infarct in the left internal capsule, with additional chronic lacunar infarcts in the left parietal and occipital lobes and right basal ganglia. Neurology was consulted and determined he was not a candidate for thrombolysis due to symptom onset beyond 4.5 hours, nor for thrombectomy given absence of LVO. Their recommendations included aspirin 81 mg daily, initiation of high-intensity statin therapy with atorvastatin 80 mg daily, permissive hypertension with a goal less than 220/120 mmHg for the first 24 hours, and transthoracic echocardiogram with bubble study to evaluate for embolic source (not yet completed). PT, OT, and speech therapy were consulted for early rehabilitation and swallow assessment, and laboratory evaluation for lipids and hemoglobin A1c was ordered. He was counseled extensively on stroke prevention and risk factor modification, including smoking cessation and reduction of cannabis use. His seizure history was reviewed, as he is not on maintenance antiepileptic therapy. Seizure precautions were initiated, and recommendations were made for outpatient neurology follow-up for long-term seizure management and possible AED initiation. Benzodiazepines are to be avoided unless recurrent seizure activity occurs. His leukocytosis was felt to be reactive, and repeat monitoring was advised. Remote infarcts seen on imaging were addressed through secondary prevention measures already included in his stroke care plan. The patient received counseling and nicotine replacement therapy for tobacco use, with referral to outpatient cessation resources, and was counseled regarding cannabis use, particularly in relation to neurologic recovery and seizure threshold. His cervical degenerative changes were noted as a chronic finding without need for acute intervention, with outpatient referral to spine care if symptoms develop. At the patients request, arrangements were made for transfer to [facility], which has accepted him for ongoing stroke management and rehabilitation, closer to where he resides. I spent 35 minutes [id number] with the patient on the day of discharge performing discharge exam, discussing hospital stay and discharge instructions with patient and caregivers, preparation of discharge records, prescriptions & referral forms and addressing any questions/concerns the patient had as documented above. - Vitals & Intake/Output Vital Signs: Vital Signs Temperature 97.5 F 11/30/24 14:58 Pulse Rate 45 L 11/30/24 14:58 Respiratory Rate 15 11/30/24 14:58 Blood Pressure 160/83 11/30/24 14:58 O2 Sat by Pulse Oximetry 96 11/30/24 14:58 Intake & Output: Intake & Output 11/28/24 11/29/24 11/30/24 12/01/24 11:59 11:59 11:59 11:59 Output Total 500 Balance -500 Weight 25.628 kg 25.628 kg - Lab Result Diagrams: 11/30/24 07:22 11/30/24 07:22 Lab Results-Last 24 Hrs: Lab Results-Last 24 Hours 11/30/24 11/30/24 11/30/24 Range/Units 07:12 07:22 07:22 WBC 12.3 H (4.23-9.07) x10^3/uL RBC 4.77 (4.63-6.08) x10^6/uL Hgb 15.2 (13.7-17.5) g/dL Hct 44.7 (40.1-51.0) % MCV 93.7 H (79.0-92.2) fL MCH 31.9 (25.7-32.2) pg MCHC 34.0 (32.3-36.5) g/dL RDW 13.1 (11.6-14.4) % Plt Count 275 (163-337) x10^3/uL MPV 10.9 (9.4-12.4) fL Gran % 57.4 (34.0-67.9) % Immature Gran % (Auto) 0.4 (0.001-0.429) % Nucleat RBC Rel Count 0.0 (0.00-0.2) % Eos # (Auto) 0.20 (0.04-0.54) x10^3/uL Immature Gran # (Auto) 0.05 H (0.001-0.031) x10^3u/L Absolute Lymphs (auto) 3.73 H (1.32-3.57) x10^3/uL Absolute Monos (auto) 1.20 H (0.30-0.82) x10^3/uL Absolute Nucleated RBC 0.00 (0.00-0.012) x10^3u/L Lymphocytes % 30.3 (21.8-53.1) % Monocytes % 9.7 (5.3-12.2) % Eosinophils % 1.6 (0.8-7.0) % Basophils % 0.6 (0.2-1.2) % Absolute Granulocytes 7.07 H (1.78-5.38) x10^3/uL Basophils # 0.07 (0.01-0.08) x10^3/uL PT (9.4-12.5) SECONDS INR (0.8-3.0) Sodium 141 (135-145) mmol/L Potassium 4.0 (3.5-5.1) mmol/L Chloride 104 (98-107) mmol/L Carbon Dioxide 26 (22-30) mmol/L Anion Gap 15.1 H (5-15) MEQ/L BUN 19 (9-20) mg/dL Creatinine 0.93 (0.66-1.25) mg/dL Estimated GFR 95.2 ML/MIN Glucose 120 H (74-106) mg/dL POC Glucometer 109 H (74 to 106) mg/dL Hemoglobin A1c (4.5-6.0) % Lactic Acid (0.4-2.0) Calcium 9.4 (8.4-10.2) mg/dL Total Bilirubin 0.20 (0.2-1.3) mg/dL AST 29 (17-59) U/L ALT 27 (0-50) U/L Alkaline Phosphatase 85 (38-126) U/L Troponin I (0.000-0.033) ng/mL Serum Total Protein 7.7 (6.3-8.2) g/dL Albumin 4.8 (3.5-5.0) g/dL Urine Color (Yellow) Urine Appearance (Clear) Urine pH (4.6-8.0) Ur Specific [place] (1.005-1.030) Urine Protein (Negative) Urine Glucose (UA) (Negative) mg/dL Urine Ketones (Negative) Urine Blood (Negative) Urine Nitrite (Negative) Urine Bilirubin (Negative) Urine Urobilinogen (0.2) mg/dL Ur Leukocyte Esterase (Negative) U Hyaline Cast (Auto) (0-2) /LPF Urine Microscopic RBC (0-5) /HPF Urine Microscopic WBC (0-5) /HPF Ur Epithelial Cells (None Seen) /HPF Urine Bacteria (None Seen) /HPF Urine Culture Reflexed (NO) Salicylates < 1.0 L (2-20) mg/dL Urine Opiates Level (NEGATIVE) Ur Methadone (NEGATIVE) Acetaminophen < 10 L (10-30) ug/ml Urine Barbiturates (NEGATIVE) Ur Phencyclidine (PCP) (NEGATIVE) Urine Amphetamine (NEGATIVE) U Benzodiazepine Level (NEGATIVE) Urine Cocaine (NEGATIVE) Urine Marijuana (THC) (NEGATIVE) Ethyl Alcohol < 10 (0-10) mg/dL 11/30/24 11/30/24 11/30/24 Range/Units 07:22 07:22 08:40 WBC (4.23-9.07) x10^3/uL RBC (4.63-6.08) x10^6/uL Hgb (13.7-17.5) g/dL Hct (40.1-51.0) % MCV (79.0-92.2) fL MCH (25.7-32.2) pg MCHC (32.3-36.5) g/dL RDW (11.6-14.4) % Plt Count (163-337) x10^3/uL MPV (9.4-12.4) fL Gran % (34.0-67.9) % Immature Gran % (Auto) (0.001-0.429) % Nucleat RBC Rel Count (0.00-0.2) % Eos # (Auto) (0.04-0.54) x10^3/uL Immature Gran # (Auto) (0.001-0.031) x10^3u/L Absolute Lymphs (auto) (1.32-3.57) x10^3/uL Absolute Monos (auto) (0.30-0.82) x10^3/uL Absolute Nucleated RBC (0.00-0.012) x10^3u/L Lymphocytes % (21.8-53.1) % Monocytes % (5.3-12.2) % Eosinophils % (0.8-7.0) % Basophils % (0.2-1.2) % Absolute Granulocytes (1.78-5.38) x10^3/uL Basophils # (0.01-0.08) x10^3/uL PT 9.7 (9.4-12.5) SECONDS INR 0.88 (0.8-3.0) Sodium (135-145) mmol/L Potassium (3.5-5.1) mmol/L Chloride (98-107) mmol/L Carbon Dioxide (22-30) mmol/L Anion Gap (5-15) MEQ/L BUN (9-20) mg/dL Creatinine (0.66-1.25) mg/dL Estimated GFR ML/MIN Glucose (74-106) mg/dL POC Glucometer (74 to 106) mg/dL Hemoglobin A1c (4.5-6.0) % Lactic Acid (0.4-2.0) Calcium (8.4-10.2) mg/dL Total Bilirubin (0.2-1.3) mg/dL AST (17-59) U/L ALT (0-50) U/L Alkaline Phosphatase (38-126) U/L Troponin I < 0.012 (0.000-0.033) ng/mL Serum Total Protein (6.3-8.2) g/dL Albumin (3.5-5.0) g/dL Urine Color Yellow (Yellow) Urine Appearance Clear (Clear) Urine pH 6.5 (4.6-8.0) Ur Specific [place] 1.015 (1.005-1.030) Urine Protein Negative (Negative) Urine Glucose (UA) Negative (Negative) mg/dL Urine Ketones Negative (Negative) Urine Blood Negative (Negative) Urine Nitrite Negative (Negative) Urine Bilirubin Negative (Negative) Urine Urobilinogen 0.2 (0.2) mg/dL Ur Leukocyte Esterase Negative (Negative) U Hyaline Cast (Auto) NONE SEEN (0-2) /LPF Urine Microscopic RBC 0-2 (0-5) /HPF Urine Microscopic WBC 0-2 (0-5) /HPF Ur Epithelial Cells None Seen (None Seen) /HPF Urine Bacteria None Seen (None Seen) /HPF Urine Culture Reflexed NO (NO) Salicylates (2-20) mg/dL Urine Opiates Level (NEGATIVE) Ur Methadone (NEGATIVE) Acetaminophen (10-30) ug/ml Urine Barbiturates (NEGATIVE) Ur Phencyclidine (PCP) (NEGATIVE) Urine Amphetamine (NEGATIVE) U Benzodiazepine Level (NEGATIVE) Urine Cocaine (NEGATIVE) Urine Marijuana (THC) (NEGATIVE) Ethyl Alcohol (0-10) mg/dL 11/30/24 11/30/24 11/30/24 Range/Units 08:40 10:00 10:02 WBC (4.23-9.07) x10^3/uL RBC (4.63-6.08) x10^6/uL Hgb (13.7-17.5) g/dL Hct (40.1-51.0) % MCV (79.0-92.2) fL MCH (25.7-32.2) pg MCHC (32.3-36.5) g/dL RDW (11.6-14.4) % Plt Count (163-337) x10^3/uL MPV (9.4-12.4) fL Gran % (34.0-67.9) % Immature Gran % (Auto) (0.001-0.429) % Nucleat RBC Rel Count (0.00-0.2) % Eos # (Auto) (0.04-0.54) x10^3/uL Immature Gran # (Auto) (0.001-0.031) x10^3u/L Absolute Lymphs (auto) (1.32-3.57) x10^3/uL Absolute Monos (auto) (0.30-0.82) x10^3/uL Absolute Nucleated RBC (0.00-0.012) x10^3u/L Lymphocytes % (21.8-53.1) % Monocytes % (5.3-12.2) % Eosinophils % (0.8-7.0) % Basophils % (0.2-1.2) % Absolute Granulocytes (1.78-5.38) x10^3/uL Basophils # (0.01-0.08) x10^3/uL PT (9.4-12.5) SECONDS INR (0.8-3.0) Sodium (135-145) mmol/L Potassium (3.5-5.1) mmol/L Chloride (98-107) mmol/L Carbon Dioxide (22-30) mmol/L Anion Gap (5-15) MEQ/L BUN (9-20) mg/dL Creatinine (0.66-1.25) mg/dL Estimated GFR ML/MIN Glucose (74-106) mg/dL POC Glucometer (74 to 106) mg/dL Hemoglobin A1c (4.5-6.0) % Lactic Acid 1.4 (0.4-2.0) Calcium (8.4-10.2) mg/dL Total Bilirubin (0.2-1.3) mg/dL AST (17-59) U/L ALT (0-50) U/L Alkaline Phosphatase (38-126) U/L Troponin I 0.016 (0.000-0.033) ng/mL Serum Total Protein (6.3-8.2) g/dL Albumin (3.5-5.0) g/dL Urine Color (Yellow) Urine Appearance (Clear) Urine pH (4.6-8.0) Ur Specific [place] (1.005-1.030) Urine Protein (Negative) Urine Glucose (UA) (Negative) mg/dL Urine Ketones (Negative) Urine Blood (Negative) Urine Nitrite (Negative) Urine Bilirubin (Negative) Urine Urobilinogen (0.2) mg/dL Ur Leukocyte Esterase (Negative) U Hyaline Cast (Auto) (0-2) /LPF Urine Microscopic RBC (0-5) /HPF Urine Microscopic WBC (0-5) /HPF Ur Epithelial Cells (None Seen) /HPF Urine Bacteria (None Seen) /HPF Urine Culture Reflexed (NO) Salicylates (2-20) mg/dL Urine Opiates Level NEGATIVE (NEGATIVE) Ur Methadone NEGATIVE (NEGATIVE) Acetaminophen (10-30) ug/ml Urine Barbiturates NEGATIVE (NEGATIVE) Ur Phencyclidine (PCP) NEGATIVE (NEGATIVE) Urine Amphetamine NEGATIVE (NEGATIVE) U Benzodiazepine Level NEGATIVE (NEGATIVE) Urine Cocaine NEGATIVE (NEGATIVE) Urine Marijuana (THC) POSITIVE A (NEGATIVE) Ethyl Alcohol (0-10) mg/dL 11/30/24 11/30/24 Range/Units 15:15 15:15 WBC (4.23-9.07) x10^3/uL RBC (4.63-6.08) x10^6/uL Hgb (13.7-17.5) g/dL Hct (40.1-51.0) % MCV (79.0-92.2) fL MCH (25.7-32.2) pg MCHC (32.3-36.5) g/dL RDW (11.6-14.4) % Plt Count (163-337) x10^3/uL MPV (9.4-12.4) fL Gran % (34.0-67.9) % Immature Gran % (Auto) (0.001-0.429) % Nucleat RBC Rel Count (0.00-0.2) % Eos # (Auto) (0.04-0.54) x10^3/uL Immature Gran # (Auto) (0.001-0.031) x10^3u/L Absolute Lymphs (auto) (1.32-3.57) x10^3/uL Absolute Monos (auto) (0.30-0.82) x10^3/uL Absolute Nucleated RBC (0.00-0.012) x10^3u/L Lymphocytes % (21.8-53.1) % Monocytes % (5.3-12.2) % Eosinophils % (0.8-7.0) % Basophils % (0.2-1.2) % Absolute Granulocytes (1.78-5.38) x10^3/uL Basophils # (0.01-0.08) x10^3/uL PT (9.4-12.5) SECONDS INR (0.8-3.0) Sodium (135-145) mmol/L Potassium (3.5-5.1) mmol/L Chloride (98-107) mmol/L Carbon Dioxide (22-30) mmol/L Anion Gap (5-15) MEQ/L BUN (9-20) mg/dL Creatinine (0.66-1.25) mg/dL Estimated GFR ML/MIN Glucose (74-106) mg/dL POC Glucometer (74 to 106) mg/dL Hemoglobin A1c 5.51 (4.5-6.0) % Lactic Acid (0.4-2.0) Calcium (8.4-10.2) mg/dL Total Bilirubin (0.2-1.3) mg/dL AST (17-59) U/L ALT (0-50) U/L Alkaline Phosphatase (38-126) U/L Troponin I < 0.012 (0.000-0.033) ng/mL Serum Total Protein (6.3-8.2) g/dL Albumin (3.5-5.0) g/dL Urine Color (Yellow) Urine Appearance (Clear) Urine pH (4.6-8.0) Ur Specific [place] (1.005-1.030) Urine Protein (Negative) Urine Glucose (UA) (Negative) mg/dL Urine Ketones (Negative) Urine Blood (Negative) Urine Nitrite (Negative) Urine Bilirubin (Negative) Urine Urobilinogen (0.2) mg/dL Ur Leukocyte Esterase (Negative) U Hyaline Cast (Auto) (0-2) /LPF Urine Microscopic RBC (0-5) /HPF Urine Microscopic WBC (0-5) /HPF Ur Epithelial Cells (None Seen) /HPF Urine Bacteria (None Seen) /HPF Urine Culture Reflexed (NO) Salicylates (2-20) mg/dL Urine Opiates Level (NEGATIVE) Ur Methadone (NEGATIVE) Acetaminophen (10-30) ug/ml Urine Barbiturates (NEGATIVE) Ur Phencyclidine (PCP) (NEGATIVE) Urine Amphetamine (NEGATIVE) U Benzodiazepine Level (NEGATIVE) Urine Cocaine (NEGATIVE) Urine Marijuana (THC) (NEGATIVE) Ethyl Alcohol (0-10) mg/dL - Radiology Exams Ordered Rad Exams-Entire Visit: Radiology Procedures Category Date Time Status CHEST 1 VIEW (PORTABLE) Stat Exams 11/30/24 07:[address] ANGIOGRAPHY NECK [CT] Stat Exams 11/30/24 11:07 Completed CTA HEAD W AND/OR WO CONTRAST [CT] Stat Exams 11/30/24 11:06 Completed ECHO W/2D AND DOPPLER [US] Routine Exams 12/01/24 15:11 Ordered HEAD WITHOUT CONTRAST [CT] Stat Exams 11/30/24 07:14 Completed MRI BRAIN W/O CONTRAST [MRI] Stat Exams 11/30/24 13:12 Completed - Procedures and Test Procedures and Tests throughout Hospitalization: Therapy Orders & Screens 11/30/24 15:06 PT Eval & Treat (MD Order) ONCE Reason for Eval:: weakness Diagnosis: CVA OT Eval and Treat (MD Order) ONCE Comment: Physician Instructions: Reason For Exam: Diagnosis: CVA 11/30/24 15:07 ST Eval & Treat (MD Order) ROUTINE Comment: x Physician Instructions: speech/swallow eval Reason For Exam: CVA Evaluate: Yes Treat: Yes Reason for Eval: speech/swallow eval Diagnosis: CVA Discharge Exam General Appearance: no apparent distress Neurologic Exam: alert, oriented x 3, motor deficits, sensory deficit, motor weakness, facial droop, slurred speech, dysarthria, abnormal gait Eye Exam: PERRL Ears, Nose, Throat Exam: normal ENT inspection Neck Exam: normal inspection Respiratory Exam: normal breath sounds, lungs clear Cardiovascular Exam: regular rate/rhythm, normal heart sounds Gastrointestinal/Abdomen Exam: soft, normal bowel sounds Male Genitalia Exam: deferred Rectal Exam: deferred Back Exam: normal inspection Extremity Exam: normal inspection Skin Exam: normal color Final Diagnosis/Problem List - Final Discharge Diagnosis/Problem (1) Acute ischemic stroke Current Visit: Yes Status: Acute Assessment & Plan: MRI confirmed 1.9 x 0.4 cm acute ischemia in the left internal capsule; CT/CTA negative for acute bleed or LVO. Neurology consulted; not a candidate for thrombolysis (>4.5 hrs from onset) or thrombectomy (no LVO). Initiated aspirin 81 mg PO daily. Started high-intensity statin: atorvastatin 80 mg PO nightly. Permissive hypertension allowed, maintain BP <220/120 mmHg for first 24 hrs. Ordered transthoracic echocardiogram with bubble study (pending at transfer). Serial neuro checks and continuous telemetry monitoring. PT/OT/DEBT COLLECTION SPECIALIST consulted for rehabilitation and swallow evaluation. Labs ordered: lipid panel, HbA1c. Risk factor modification discussed: smoking cessation, cannabis reduction, diet, and exercise. Education provided regarding recognition of stroke symptoms and need for urgent car Code(s): I63.9 - CEREBRAL INFARCTION, UNSPECIFIED (2) Stroke-like symptom Current Visit: Yes Status: Acute Assessment & Plan: see above Code(s): R29.90 - UNSPECIFIED SYMPTOMS AND SIGNS INVOLVING THE NERVOUS SYSTEM (3) Leukocytosis Current Visit: Yes Status: Acute Assessment & Plan: No infectious source identified; likely reactive. No antibiotics initiated. Plan for repeat CBC monitoring at follow-up. Code(s): D72.829 - ELEVATED WHITE BLOOD CELL COUNT, UNSPECIFIED (4) High anion gap metabolic acidosis Current Visit: Yes Status: Acute Assessment & Plan: Etiology unclear No metabolic cause of presenting symptoms identified. Code(s): E87.29 - OTHER ACIDOSIS (5) Seizure disorder Current Visit: Yes Status: Acute Assessment & Plan: History of seizures, not on home AED therapy. In ED: generalized shaking episode treated with lorazepam, followed by postictal drowsiness. Seizure precautions implemented during admission. Avoid further benzodiazepines unless recurrent seizure activity occurs. Outpatient neurology follow-up arranged for evaluation of long-term AED initiation. EEG recommended if further events occur. Code(s): G40.909 - EPILEPSY, UNSP, NOT INTRACTABLE, WITHOUT STATUS EPILEPTICUS (6) Remote history of stroke Current Visit: Yes Status: Acute Assessment & Plan: see stroke above Code(s): Z86.73 - PRSNL HX OF TIA (TIA), AND CEREB INFRC W/O RESID DEFICITS (7) Tobacco abuse Current Visit: Yes Status: Acute Assessment & Plan: Strong counseling provided regarding cessation. Nicotine patch initiated during admission. Code(s): Z72.0 - TOBACCO USE (8) Cannabis abuse Current Visit: Yes Status: Acute Assessment & Plan: Urine drug screen positive for THC, consistent with daily use. Counseling provided regarding neurologic and seizure threshold effects. Recommended reduction/cessation. Code(s): F12.10 - CANNABIS ABUSE, UNCOMPLICATED (9) Degenerative disc disease, cervical Current Visit: Yes Status: Acute Assessment & Plan: No acute intervention required. Outpatient referral to spine clinic if symptomatic in future. Code(s): M50.30 - OTHER CERVICAL DISC DEGENERATION, UNSP CERVICAL REGION - Discharge Discharge Date: 11/30/24 ([facility]) Disposition: DC TO OTHER HOSP Condition: Stable Prescriptions: New Aspirin EC 81 mg [Ecotrin 81 mg] 81 mg PO QAM tablet Atorvastatin Calcium [Lipitor 40Mg] 80 mg PO DAILY tablet Nicotine 14 mg [Nicoderm Cq 14 mg] 14 mg TOP Q24H10 patch Ondansetron HCl 4 mg/2 ml [Zofran 4 MG/2 ML VIAL] 4 mg IV Q6H PRN PRN PRN Reason: Nausea/Vomiting Follow up with: DOCTOR,NO FAMILY [Primary Care Provider, UNKNOWN] - Follow up/PCP as directed
[2024-11-30] MEDS: NICODERM CQ 14 MG TOP SCH (17:14)
[2024-11-30] MEDS: LIPITOR 40MG PO SCH (17:16)
[2024-11-30 19:33] VITALS: RESP 16
[2024-11-30 23:45] VITALS: BP 158/83; PULSE 53; TEMP 98.1; O2SAT 92
[2024-12-01] MEDS ORDERED: ECOTRIN 81 MG PO SCH (10:00)
== END 2024-12-01 01:09 ==
LOC: ED 07:06 → MED SURG 14:12
PROVIDERS: ADMIT Internal Medicine; ATTEND Internal Medicine
DX: I63.9 Cerebral infarction, unspecified (principal); R29.90 Unspecified symptoms and signs involving the nervous system; D72.829 Elevated white blood cell count, unspecified; E87.29 Other acidosis; G40.909 Epilepsy, unspecified, not intractable, without status epilepticus; Z86.73 Personal history of transient ischemic attack (TIA), and cerebral infarction without residual deficits; Z72.0 Tobacco use; F12.10 Cannabis abuse, uncomplicated; M50.30 Other cervical disc degeneration, unspecified cervical region; Z79.899 Other long term (current) drug therapy
CPT/HCPCS: 36415; 70450; 70496; 70498; 70551; 71045; 80053; 80143; 80179; 80307; 81001; 82077; 82947; 83036; 83605; 84484; 85025; 85610; 93005; 93268; 94762; 96374; 99285; G0378; Q3014